=== PATIENT | male | born 1955 | race Caucasian/White ===

== ENCOUNTER 2021-01-20 20:22 | Inpatient (IN) | payer MEDICARE, OTHER ==
[2021-01-20 21:22] LABS: Basophils % (A) 0 %; Eosinophils % (A) 0 %; HGB 17.7 gm/dL (13.0-17.5); Hypochromasia Slight; Lymphocytes # (A) 0.4 k/uL (1.0-4.8); Lymphocytes % (A) 6 %; MCH 28.3 pg (25.0-35.0); MCHC 31.7 g/dL (31.0-37.0); MCV 89.2 fL (80.0-100.0); Mean Platelet Volume 9.5; Monocytes # (A) 0.2 k/uL (0-1.0); Monocytes % (A) 2 %; Neutrophils # (A) 6.7 k/uL (1.3-7.7); Neutrophils % (A) 91 %; Platelet Count 147 k/uL (150-450); RBC 6.27 m/uL (4.30-5.90); RDW 15.3 % (11.5-15.5); WBC 7.4 k/uL (3.8-10.6)
--- NOTE | 2021-01-20 21:27 | ED ---
SOB HPI - General Chief Complaint: Shortness of Breath Stated Complaint: Shortness of Breath Time Seen by Provider: 01/20/21 20:34 Source: EMS Mode of arrival: EMS Limitations: no limitations - History of Present Illness Initial Comments: Mark is a 65-year-old woman who does not follow up with primary care physician, Mark presented to an outside hospital with a complaint of chronic abdominal pain, lower extremity edema, shortness of breath. Patient was found to have hypoxia with oxygen levels in the low 80s. Chest x-ray showed reticular pattern of abnormality. Abdominal computed tomography scan showed diffuse lymphadenopathy with no acute findings. Patient actually requirements at 15 L/m to maintain oxygen saturation of 90-92% he was transferred here for evaluation by pulmonology and cardiology. Patient doesn't follow the primary care physician doesn't have any formal diagnoses. Doesn't have any chest pain but reports he's been feeling very short of breath his legs swollen his been fatigued. Denies any fevers chills nausea or vomiting. - Related Data Home Medications Medication Instructions Recorded Confirmed No Known Home Medications 01/20/21 01/20/21 Allergies Allergy/AdvReac Type Severity Reaction Status Date / Time No Known Allergies Allergy Verified 01/20/21 21:41 Review of Systems ROS Statement: Those systems with pertinent positive or pertinent negative responses have been documented in the HPI. ROS Other: All systems not noted in ROS Statement are negative. Past Medical History Past Medical History: Hypertension History of Any Multi-Drug Resistant Organisms: None Reported Past Surgical History: No Surgical Hx Reported Past Psychological History: No Psychological Hx Reported Smoking Status: Former smoker Past Alcohol Use History: None Reported Past Drug Use History: None Reported General Exam - General Exam Comments Initial Comments: Physical Exam GENERAL: Moderate respiratory distress Obese with BMI 43.9 HENT: Normocephalic, Atraumatic. EYES: PERRL, EOMI PULMONARY: No wheezing Tachypnea CARDIOVASCULAR: RRR ABDOMEN: Obese, non-tender SKIN: Pale, dry : Deferred NEUROLOGIC: Patient is alert and oriented x3. Moving all extremities spontaneously MUSCULOSKELETAL: Normal strength Lower extremity edema PSYCHIATRIC: Normal psychiatric evaluation. Limitations: no limitations Course Vital Signs 01/20/21 01/20/21 20:33 22:02 Temperature 98.5 F Pulse Rate 94 101 H Respiratory 18 24 Rate Blood Pressure 185/115 154/109 O2 Sat by Pulse 90 L 90 L Oximetry Medical Decision Making - Medical Decision Making Patient care was discussed with transferring physician Obese 65-year-old gentleman who does not follow with a physician presented hypoxic with multitude of complaints Outside labs are relatively unremarkable chest x-ray had some abnormalities and abdominal CT showed diffuse lymphadenopathy Upon arrival patient was on nonrebreather at 15 L with oxygen saturations in the mid 90s Patient was placed on BiPAP Repeat labs are obtained patient's troponin continues to not be elevated Computed tomography scan shows possible filtrate in both lower lungs, community- acquired pneumonia coverage was ordered Patient care was admitted to Dr. Matthews - Lab Data Result diagrams: 01/20/21 21:05 01/20/21 21:05 Lab Results 01/20/21 01/20/21 01/20/21 Range/Units 21: 21:05 21:05 WBC 7.4 (3.8-10.6) k/uL RBC 6.27 H (4.30-5.90) m/uL Hgb 17.7 H (13.0-17.5) gm/dL Hct 56.0 H (39.0-53.0) % MCV 89.2 (80.0-100.0) fL MCH 28.3 (25.0-35.0) pg MCHC 31.7 (31.0-37.0) g/dL RDW 15.3 (11.5-15.5) % Plt Count 147 L (150-450) k/uL MPV 9.5 Neutrophils % 91 % Lymphocytes % 6 % Monocytes % 2 % Eosinophils % 0 % Basophils % 0 % Neutrophils # 6.7 (1.3-7.7) k/uL Lymphocytes # 0.4 L (1.0-4.8) k/uL Monocytes # 0.2 (0-1.0) k/uL Eosinophils # 0.0 (0-0.7) k/uL Basophils # 0.0 (0-0.2) k/uL Hypochromasia Slight PT 11.6 (9.0-12.0) sec INR 1.1 (<1.2) APTT 24.1 (22.0-30.0) sec Sodium 138 (137-145) mmol/L Potassium 4.1 (3.5-5.1) mmol/L Chloride 98 (98-107) mmol/L Carbon Dioxide 32 H (22-30) mmol/L Anion Gap 8 mmol/L BUN 16 (9-20) mg/dL Creatinine 0.82 (0.66-1.25) mg/dL Est GFR (CKD-EPI)AfAm >90 (>60 ml/min/1.73 sqM) Est GFR (CKD-EPI)NonAf >90 (>60 ml/min/1.73 sqM) Glucose 162 H (74-99) mg/dL Plasma Lactic Acid Federico (0.7-2.0) mmol/L Calcium 8.9 (8.4-10.2) mg/dL Total Bilirubin 1.0 (0.2-1.3) mg/dL AST 29 (17-59) U/L ALT 29 (4-49) U/L Alkaline Phosphatase 98 (38-126) U/L Total Protein 7.0 (6.3-8.2) g/dL Albumin 4.1 (3.5-5.0) g/dL 01/20/21 Range/Units 21:05 WBC (3.8-10.6) k/uL RBC (4.30-5.90) m/uL Hgb (13.0-17.5) gm/dL Hct (39.0-53.0) % MCV (80.0-100.0) fL MCH (25.0-35.0) pg MCHC (31.0-37.0) g/dL RDW (11.5-15.5) % Plt Count (150-450) k/uL MPV Neutrophils % % Lymphocytes % % Monocytes % % Eosinophils % % Basophils % % Neutrophils # (1.3-7.7) k/uL Lymphocytes # (1.0-4.8) k/uL Monocytes # (0-1.0) k/uL Eosinophils # (0-0.7) k/uL Basophils # (0-0.2) k/uL Hypochromasia PT (9.0-12.0) sec INR (<1.2) APTT (22.0-30.0) sec Sodium (137-145) mmol/L Potassium (3.5-5.1) mmol/L Chloride (98-107) mmol/L Carbon Dioxide (22-30) mmol/L Anion Gap mmol/L BUN (9-20) mg/dL Creatinine (0.66-1.25) mg/dL Est GFR (CKD-EPI)AfAm (>60 ml/min/1.73 sqM) Est GFR (CKD-EPI)NonAf (>60 ml/min/1.73 sqM) Glucose (74-99) mg/dL Plasma Lactic Acid Federico 1.0 (0.7-2.0) mmol/L Calcium (8.4-10.2) mg/dL Total Bilirubin (0.2-1.3) mg/dL AST (17-59) U/L ALT (4-49) U/L Alkaline Phosphatase (38-126) U/L Total Protein (6.3-8.2) g/dL Albumin (3.5-5.0) g/dL - EKG Data -: EKG Interpreted by Me EKG Comments: EKG was obtained due to shortness of breath, EKG obtained at 2053 rate is 91 rhythm is sinus, 160, care is 82, QTC prolonged at 526. No acute ST elevations or depressions no evidence of acute ischemia or infarction. Respiratory ar tifact noted. Disposition Clinical Impression: Hypoxia Disposition: ADMITTED IP TO THIS HOSP Condition: Serious Referrals: None,Stated [Primary Care Provider] - 1-2 days
[2021-01-20 21:32] LABS: INR 1.1 (<1.2); Partial Thromboplastin Time 24.1 sec (22.0-30.0); Prothrombin Time 11.6 sec (9.0-12.0)
[2021-01-20 22:14] LABS: ALT 29 U/L (4-49); AST 29 U/L (17-59); African American GFR (CKD) >90 (>60 ml/min/1.73 sqM); Albumin 4.1 g/dL (3.5-5.0); Alkaline Phosphatase 98 U/L (38-126); Anion Gap 8 mmol/L; Blood Urea Nitrogen 16 mg/dL (9-20); Calcium 8.9 mg/dL (8.4-10.2); Carbon Dioxide 32 mmol/L (22-30); Chloride 98 mmol/L (98-107); Glucose 162 mg/dL (74-99); Non-African American GFR(CKD) >90 (>60 ml/min/1.73 sqM); Potassium 4.1 mmol/L (3.5-5.1); Sodium 138 mmol/L (137-145)
--- NOTE | 2021-01-20 22:38 | CT ---
EXAMINATION TYPE: CT chest angio for PE DATE OF EXAM: 01/20/2021 COMPARISON: None HISTORY: SOB CT DLP: 745.2 mGycm Automated exposure control for dose reduction was used. CONTRAST: Performed with IV Contrast, patient injected with 82cc mL of Isovue 370. There are 3-D post processed images. There is patchy interstitial infiltrates and atelectasis in the posterior lower lung vasques. Heart is enlarged. There is no pericardial effusion. There is no pleural effusion. There are no hilar masses. There is no mediastinal adenopathy. Thoracic aorta is intact. There is no aneurysm or dissection. There is T8 anterior wedging 20% which appears old. There is no evidence of filling defect in the pulmonary arteries. Ascending aorta measures 3.9 cm. IMPRESSION: No evidence of pulmonary embolism. Bilateral posterior lower lung field pulmonary infiltrates and atelectasis. Cardiomegaly.
[2021-01-20] MEDS ORDERED: NALOXONE 0.4 MG/ML 1 ML VIAL IV PRN (22:43)
[2021-01-20] MEDS ORDERED: AZITHROMYCIN 500 MG in SODIUM CHLORIDE 0.9% 250 ML IVPB STA (22:43)
[2021-01-20 23:56] LABS: ABG Base Excess 10.3 mmol/L; ABG HCO3 36 mmol/L (21-25); ABG Oxygen Saturation 94.3 % (94-97); ABG PCO2 61 mmHg (35-45); ABG PH 7.37 (7.35-7.45); ABG PO2 76 mmHg (83-108); ABG TCO2 38 mmol/L (19-24); Allen Test Performed? Yes
[2021-01-21] MEDS ORDERED: IPRATROPIUM-ALBUTEROL 3 ML NEB INHALATION PRN (02:53)
--- NOTE | 2021-01-21 02:58 | P.HPIM ---
History of Present Illness H&P Date: 01/21/21 The patient is a 65-year-old male with a PMH of COPD and hypertension, who has not seen a physician in many years was transferred to [facility] from [facility] where he presented earlier today with multiple complaints including shortness of breath, abdominal pain, and leg swelling. The patient reports that he has been suffering with poor exertional dyspnea for many years. He was initially diagnosed with COPD and was prescribed inhalers, however the patient stopped going to physicians and thereby has not been using inhalers. He also reports diffuse abdominal and chest pain brought on with any heavy lifting. He denies pain on exertion and notes that it is only when he is holding something heavy in his arms or bending down to pick something up. He notes that over the past 1 week, shortness of breath had been gradually worsening and his excess tolerance was severely diminished, at which time his sisters convinced him to come to the emergency room. At time of interview, he reports feeling better. Reports feeling no shortness of breath at the time of interview. Denied chest discomfort, fever, chills. Reports mild chronic morning cough, unchanged. Reports long-standing bilateral lower extremity swelling, also unchanged. Denied nausea, vomiting, diarrhea. Also denied visual disturbances, weakness, numbness, tingling, dizziness. Patient reports that he was diagnosed with an abdominal mass 7-8 years ago during an emergency room visit, but the patient never followed up for it. The patient had undergone an extensive evaluation at [facility] which was all reviewed. Laboratory evaluation had revealed a WBC count of 7.5, hemoglobin 16.3, platelets 159, sodium 139, potassium 4.2, chloride 102, CO2 32, BUN 16, creatinine 0.7, glucose 153, calcium 8.6, AST 24, ALT 25, total bilirubin 1.0, lipase 106, troponin I less than 0.05, and BNP 383. CT abdomen and pelvis revealed moderate distention of the urinary bladder with bilateral hydronephrosis and hydroureter suggesting a bladder outlet obstruction. Also revealed multiple mildly enlarged periaortic lymph nodes measuring up to 1.5 cm that were indeterminate. 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 An EKG had revealed sinus rhythm at 91 bpm with a prolonged QTC at 512 and T-wave inversions in leads V1 and V2. Patient also had a CT chest angiogram at [facility] emergency room which revealed no evidence of pulmonary embolism with bilateral posterior lower lung vasques pulmonary infiltrates along with cardiomegaly. Coronavirus PCR was negative. ABG was also reviewed and was notable for a pCO2 of 61. Review of systems: Pertinent positives and negatives as discussed in HPI, a complete review of systems was performed and all other systems are negative. Physical examination: General: Somewhat ill-appearing, no distress, appears older than stated age, morbidly obese Derm: no unusual rashes/lesions no unusual ecchymoses, warm, dry Head: atraumatic, normocephalic, symmetric Eyes: EOMI, no lid lag, anicteric sclera, pupils equal round reactive to light ENT: Nose and ears atraumatic, no thrush, no pharyngeal erythema Neck: No thyromegaly, no cervical lymphadenopathy, trachea midline, supple Mouth: no lip lesion, mucus membranes moist Cardiovascular: S1S2 reg, no murmur, positive posterior tibial pulse bilateral, 2+ bilateral lower extremity pitting edema with chronic venous stasis changes noted, capillary refill less than 2 seconds Lungs: Poor air entry bilaterally with somewhat diminished breath sounds and bibasilar rales, no rhonchi, no rales , no accessory muscle use Abdominal: soft, nontender to palpation, no guarding, no appreciable organomegaly, normal bowel sounds Ext: no gross muscle atrophy, muscle strength 5 out of 5 in all 4 extremities grossly, no contractures, Neuro: CN II-XI grossly intact, light touch intact all 4 extremities, finger to nose within normal limits, Psych: Alert, oriented, appropriate affect Assessment/plan Shortness of breath, suspected acute COPD exacerbation with hypoxic and hypercapnic respiratory failure -Continue with DuoNeb's -IV steroids -Pulmonary consult -Supplemental oxygen -Obtain echocardiogram -Obtain procalcitonin - c/w Azithromycin and Ceftriaxone for now Hydroureteronephrosis -Urology consult -Bladder scan Preaortic enlarged LNs -No obvious mass noted on CT chest or abdomen/pelvis -Outpatient Oncology evaluation following dischargea HTN -Start HCTZ Prolonged QT -Hold off on further QT prolonging agents Hyperglycemia -Check A1c -Insulin sliding scale and blood glucose monitoring DVT prophylaxis -Heparin subq The patient is admitted with an anticipated greater than 2 midnight stay for evaluation of SOB CODE STATUS: Full Code Discussed with: Patient Anticipated discharge date: 3-[address]: Home A total of 40 minutes was spent on the care of this complex patient more than 50% of the time was spent in counseling and care coordination. Past Medical History Past Medical History: Hypertension History of Any Multi-Drug Resistant Organisms: None Reported Past Surgical History: No Surgical Hx Reported Past Psychological History: No Psychological Hx Reported Smoking Status: Former smoker Past Alcohol Use History: None Reported Past Drug Use History: None Reported Medications and Allergies Home Medications Medication Instructions Recorded Confirmed Type No Known Home Medications 01/20/21 01/20/21 History Allergies Allergy/AdvReac Type Severity Reaction Status Date / Time No Known Allergies Allergy Verified 01/20/21 21:41 Physical Exam Vitals: Vital Signs Temp Pulse Resp BP Pulse Ox 01/20/21 23:32 98 24 152/103 91 L 01/20/21 22:02 101 H 24 154/109 90 L 01/20/21 20:33 98.5 F 94 18 185/115 90 L Intake and Output 01/20/21 01/20/21 01/21/21 14:59 22:59 06:59 Other: Weight 127.006 kg Results CBC & Chem 7: 01/20/21 21:05 01/20/21 21:05 Labs: Abnormal Lab Results - Last 24 Hours (Table) 01/20/21 01/20/21 01/20/21 Range/Units 21:05 21:05 23:47 RBC 6.27 H (4.30-5.90) m/uL Hgb 17.7 H (13.0-17.5) gm/dL Hct 56.0 H (39.0-53.0) % Plt Count 147 L (150-450) k/uL Lymphocytes # 0.4 L (1.0-4.8) k/uL ABG pCO2 61 H (35-45) mmHg ABG pO2 76 L (83-108) mmHg ABG HCO3 36 H (21-25) mmol/L ABG Total CO2 38 H (19-24) mmol/L Carbon Dioxide 32 H (22-30) mmol/L Glucose 162 H (74-99) mg/dL
[2021-01-21] MEDS ORDERED: methylPREDNISolone SOD SUCCI 125 MG/2 ML VIAL IV SCH (06:00)
[2021-01-21 07:57] LABS: Glucose,Whole Blood 114 mg/dL (75-99)
[2021-01-21] MEDS: INSULIN ASPART (NovoLOG) 100 UNIT/ML VIAL SQ SCH ×4 (08:50→21:16)
[2021-01-21] MEDS: IPRATROPIUM-ALBUTEROL 3 ML NEB INHALATION SCH ×4 (08:58→20:51)
[2021-01-21] MEDS: HEPARIN SODIUM,PORCINE/PF 5,000 UNIT/0.5 ML SYRINGE SQ SCH ×3 (09:07→23:33)
[2021-01-21 11:16] LABS: Glucose,Whole Blood 147 mg/dL (75-99)
--- NOTE | 2021-01-21 11:42 | ECHOF ---
Referral Reason:SOB MEASUREMENTS -------- HEIGHT: 170.2 cm WEIGHT: 127.0 kg BP: 158/91 RVIDd: 3.7 cm (< 3.3) IVSd: 1.4 cm (0.6 - 1.1) LVIDd: 5.5 cm (3.9 - 5.3) LVPWd: 1.6 cm (0.6 - 1.1) IVSs: 2.2 cm LVIDs: 3.9 cm LVPWs: 2.2 cm LA Diam: 3.8 cm (2.7 - 3.8) LAESV Index (A-L): 36.25 ml/m Ao Diam: 4.0 cm (2.0 - 3.7) AV Cusp: 1.9 cm (1.5 - 2.6) MV EXCURSION: 21.757 mm (> 18.000) MV EF SLOPE: 49 mm/s (70 - 150) EPSS: 1.1 cm MV E Jv: 0.78 m/s MV DecT: 272 ms MV A Jv: 1.01 m/s MV E/A Ratio: 0.77 AV maxP.90 mmHg AV meanP.02 mmHg AR PHT: 867 ms RAP: 15.00 mmHg RVSP: 48.30 mmHg FINDINGS -------- Sinus rhythm. This was a technically adequate study. The left ventricular size is normal. There is moderate concentric left ventricular hypertrophy. O verall left ventricular systolic function is moderately impaired with, an EF between 35 - 40 %. The right ventricle is mild to moderately enlarged. LA is moderately dilated 34-39 ml/m2 The right atrium is normal in size. Interatrial and interventricular septum intact. There is mild aortic valve sclerosis. There is mild aortic regurgitation. There is mild aortic st enosis present. Peak/mean gradient across the Aortic Valve is 19.90mmHg / 9.02mmHg. The mitral valve leaflets are mildly thickened. Mild mitral regurgitation is present. Mild tricuspid regurgitation present. There is moderate pulmonary hypertension. The right ventric ular systolic pressure, as measured by Doppler, is 48.30mmHg. The pulmonic valve was not well visualized. The aortic root is dilated measuring 4.0cm. The inferior vena cava is dilated with poor inspiratory collapse which is consistent with estimated r ight atrial pressure of 15 mmHg. There is no pericardial effusion. CONCLUSIONS -------- 1. The left ventricular size is normal. 2. There is moderate concentric left ventricular hypertrophy. 3. Overall left ventricular systolic function is moderately impaired with, an EF between 35 - 40 %. 4. The right ventricle is mild to moderately enlarged. 5. LA is moderately dilated 34-39 ml/m2 6. There is mild aortic valve sclerosis. 7. There is mild aortic regurgitation. 8. There is mild aortic stenosis present. 9. Peak/mean gradient across the Aortic Valve is 19.90mmHg / 9.02mmHg. 10. The mitral valve leaflets are mildly thickened. 11. Mild mitral regurgitation is present. 12. Mild tricuspid regurgitation present. 13. There is moderate pulmonary hypertension. 14. The right ventricular systolic pressure, as measured by Doppler, is 48.30mmHg. 15. The aortic root is dilated measuring 4.0cm. 16. The inferior vena cava is dilated with poor inspiratory collapse which is consistent with estimat ed right atrial pressure of 15 mmHg. 17. There is no pericardial effusion. PRESS OFFBEARER: Kerline Noel RDCS
--- NOTE | 2021-01-21 11:59 | P.CNPUL ---
History of Present Illness Consult date: 01/21/21 Requesting physician: Caesar Matthews Reason for consult: dyspnea, hypoxemia Chief complaint: Shortness of breath. History of present illness: Pulmonary consult dated 01/21/2021. 65-year-old obese male, who apparently does not see a family doctor has not seen a doctor in years, presents with the emergency room with complaints of shortness of breath, lower extremity edema, and increasing abdominal girth. The patient was noted to have significant clubbing of the fingers and toes. The patient do esn't smoke. He apparently has been smoking for a number of years although he quit for a period time as well. The patient complains of increasing shortness of breath, increasing abdominal girth, and lower extremities edema. His CAT scan did not reveal a pulmonary embolism. His examination was consistent with interstitial lung disease/pulmonary fibrosis. I suspect that likely to be his primary diagnosis. In addition, the patient likely also has secondary pulmonary hypertension, and cor pulmonale. He is currently on 15 L high flow oxygen. He appears to be mildly tachypnea. He keeps on dozing off to sleep. His saturations are in the low 90s. Temperature 97.6, heart rate 86, respiratory rate 22, and blood pressure 189/103. Currently admitted includes a white count 7.4, hemoglobin 17.7, hematocrit 56, and platelet count 147,000. PT, INR, and PTT are normal. Blood gases show a well compensated hypercapnea, with a PaO2 of 76. Sodium 138, potassium 4.1, chlorides 98, CO2 32, anion gap 8, BUN 16, and creatinine 0.82. Coronavirus testing is negative. Review of Systems REVIEW OF SYSTEMS: CONSTITUTIONAL: Lethargy and somnolence. NEUROLOGIC: [ Negative.] HEENT: [ Negative.] CARDIAC: Lower extremity edema. PULMONARY: Shortness of breath. GI: Increasing abdominal girth. : [Negative.] RHEUMATOLOGIC: [ Negative.] IMMUNOLOGIC: [ Negative.] ENDOCRINE: [Negative. ] DERMATOLOGIC: [Negative.] Past Medical History Past Medical History: Hypertension History of Any Multi-Drug Resistant Organisms: None Reported Past Surgical History: No Surgical Hx Reported Additional Past Surgical History / Comment(s): surgery 25 yrs ago right flank surgery, pt does not know what kind it was. Past Anesthesia/Blood Transfusion Reactions: No Reported Reaction Past Psychological History: No Psychological Hx Reported Smoking Status: Former smoker Past Alcohol Use History: None Reported Past Drug Use History: None Reported Medications and Allergies Home Medications Medication Instructions Recorded Confirmed Type No Known Home Medications 01/20/21 01/20/21 History Allergies Allergy/AdvReac Type Severity Reaction Status Date / Time No Known Allergies Allergy Verified 01/20/21 21:41 Physical Exam Osteopathic Statement: *. No significant issues noted on an osteopathic structural exam other than those noted in the History and Physical/Consult. Vitals: Vital Signs Temp Pulse Pulse Resp BP BP Pulse Ox 01/21/21 08:00 97.6 F 86 22 189/103 92 L 01/21/21 01:00 98.2 F 87 21 158/91 91 L 01/21/21 00:15 91 L 01/20/21 23:32 98 24 152/103 91 L 01/20/21 22:02 101 H 24 154/109 90 L 01/20/21 20:33 98.5 F 94 18 185/115 90 L Intake and Output 01/20/21 01/21/21 01/21/21 22:59 06:59 14:59 Intake Total 200 Balance 200 Intake: Oral 200 Other: # Voids 2 Weight 127.006 kg 127.006 kg No acute distress, somnolent and lethargic, he does arouse, with mild respiratory distress, and tachypnea. HEENT examination is grossly unremarkable. Neck supple. Full range of motion. No adenopathy thyromegaly or neck vein dist ention. Cardiovascular examination reveals regular rhythm rate. S1-S2 normal. No S3 or S4. No discernible murmur noted. Heart rate 86 bpm. Heart sounds are distant. Lungs reveal bibasilar crackles. Breath sounds are equal bilaterally. No rhonchi or wheezes. He is mildly restricted in his breathing. Abdomen soft bowel sounds are heard. No masses or tenderness. Abdomen is obese. Extremities are intact. No cyanosis. Lower extremity edema is 2+. The patient is significantly clubbed both in the fingertips and toe tips. Skin is without rash or lesion. Neurologic examination is brief but nonfocal. The patient dozes off to sleep easily. Results - Laboratory Findings CBC and BMP: 01/20/21 21:05 01/20/21 21:05 ABG ABG pH 7.37 (7.35-7.45) 01/20/21 23:47 ABG pCO2 61 mmHg (35-45) H 01/20/21 23:47 ABG pO2 76 mmHg (83-108) L 01/20/21 23:47 ABG O2 Saturation 94.3 % (94-97) 01/20/21 23:47 PT/INR, D-dimer PT 11.6 sec (9.0-12.0) 01/20/21 21:05 INR 1.1 (<1.2) 01/20/21 21:05 Abnormal lab findings: Abnormal Labs 01/20/21 01/20/21 01/20/21 21:05 21:05 23:47 RBC 6.27 H Hgb 17.7 H Hct 56.0 H Plt Count 147 L Lymphocytes # 0.4 L ABG pCO2 61 H ABG pO2 76 L ABG HCO3 36 H ABG Total CO2 38 H Carbon Dioxide 32 H Glucose 162 H POC Glucose (mg/dL) Ammonia 01/21/21 01/21/21 01/21/21 07:54 10:38 11:14 RBC Hgb Hct Plt Count Lymphocytes # ABG pCO2 ABG pO2 ABG HCO3 ABG Total CO2 Carbon Dioxide Glucose POC Glucose (mg/dL) 114 H 147 H Ammonia 31 H - Diagnostic Findings Chest x-ray: image reviewed CT scan - chest: image reviewed Assessment and Plan Assessment: Acute and chronic hypoxemic and hypercapnic respiratory failure, in a patient who I suspect has long-standing interstitial lung disease/pulmonary fibrosis, as well as COPD from previous tobacco use. Probable secondary pulmonary hypertension and cor pulmonale. Morbid obesity. Rule out sleep apnea syndrome. Rule out Pickwickian syndrome. Polycythemia, likely secondary to chronic lung disease. No evidence of pulmonary embolism on CT angiogram. Prior history of tobacco use. Medical noncompliance. Plan: Plan dated 01/21/2021. The patient will need an echocardiogram. The patient should get a high- resolution computed tomography scan to rule out interstitial lung disease/pulmonary fibrosis. This can be done as an outpatient. He'll need outpatient follow-up including a 6 minute walk distance, and a complete PFT. Currently, he would benefit from breathing treatments and diuretics. Cardiology should see the patient as well. Additional recommendations and suggestions are forthcoming. The patient does not need antibiotics at this time. Time with Patient: Greater than 30
--- NOTE | 2021-01-21 15:33 | P.PN ---
Subjective Progress Note Date: 01/21/21 (delayed charting seen at 1050) Principal diagnosis: shortness of breath Patient is a 65-year-old male transferred here from [facility] due to severe hypoxemia. He has a history of COPD and hypertension but had not physician in many years. At [facility] he underwent an extensive evaluation. His labs were unremarkable however CT abdomen and pelvis showed distended urinary bladder with bilateral hydronephrosis as well as possible right lower lobe pulmonary nodule. Patient is referred here for further evaluation. He underwent a CTA of the chest which was negative for pulmonary embolism and showed some atelectasis area did urology and pulmonology were consulted. Patient seen and examined at bedside. He reports that he has had progressive shortness of breath the last several years. He states he has had clubbing as long as he can remember. He has a history of 80 pack years smoking. He has chronic purple discoloration of bilateral lower extremities. General: non toxic, no distress, appears at stated age Derm: warm, dry Head: atraumatic, normocephalic, symmetric Eyes: EOMI, no lid lag, anicteric sclera Mouth: no lip lesion, mucus membranes moist Cardiovascular: S1S2 reg, no murmur, positive posterior tibial pulse bilateral, Lungs: Wheezing bilateral, no rhonchi, no rales , no accessory muscle use Abdominal: soft, nontender to palpation, no guarding, no appreciable organomegaly Ext: no gross muscle atrophy, trace edema bilateral lower extremities, no contractures clubbing of bilateral hands, Neuro: CN II-XI grossly intact, no focal neuro deficits, asterixis, hypophonia with mast cc Psych: Alert, oriented, appropriate affect Acute exacerbation of COPD with acute on chronic hypoxic hypercapnic respiratory failure - bronchodilators -Pulmonary recommendations: Outpatient PFT, walk test, and HRCT, no steroids or abx -Wean O2 as able - off abx per pulm, await procalcitonin Newly discovered systolic cardiomyopathy with 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-40%, acute exacerbation -Lasix, spironolactone - cozaar - no BB due to new excerbation and systolic -Cardiology consult -Telemetry -Strict I's and O's, daily weight Hydronephrosis with bladder outlet obstruction -Await urology recommendations - [place] Enlarged periaortic lymph nodes -Outpatient oncology evaluation -No obvious mass on CT abdomen and pelvis Elevated blood pressure without formal diagnosis of hypertension - lasix, spironolactone - follow BP Prolonged QT Hyperglycemia - SSI - await A1C Obesity with BMI 43.9 - outpatient structured weight loss DVT prophylaxis: SCDs Discussed with: patient, nursing Anticipated discharge: 2-[address]: home A total of 45 minutes was spent on the care of this complex patient more than 50% of the time was spent in counseling and care coordination. Objective - Vital Signs Vital signs: Vital Signs Temp 98.7 F 01/21/21 14:00 Pulse 74 01/21/21 14:00 Resp 22 01/21/21 14:00 BP 151/91 01/21/21 14:00 Pulse Ox 95 01/21/21 14:00 Intake & Output 01/20/21 01/21/21 01/21/21 18:59 06:59 18:59 Intake Total 200 Balance 200 Weight 127.006 kg Intake: Oral 200 Other: # Voids 2 - Labs CBC & Chem 7: 01/20/21 21:05 01/20/21 21:05 Labs: Abnormal Lab Results - Last 24 Hours (Table) 01/20/21 01/20/21 01/20/21 Range/Units 21:05 21:05 23:47 RBC 6.27 H (4.30-5.90) m/uL Hgb 17.7 H (13.0-17.5) gm/dL Hct 56.0 H (39.0-53.0) % Plt Count 147 L (150-450) k/uL Lymphocytes # 0.4 L (1.0-4.8) k/uL ABG pCO2 61 H (35-45) mmHg ABG pO2 76 L (83-108) mmHg ABG HCO3 36 H (21-25) mmol/L ABG Total CO2 38 H (19-24) mmol/L Carbon Dioxide 32 H (22-30) mmol/L Glucose 162 H (74-99) mg/dL POC Glucose (mg/dL) (75-99) mg/dL Ammonia (<30) umol/L 01/21/21 01/21/21 01/21/21 Range/Units 07:54 10:38 11:14 RBC (4.30-5.90) m/uL Hgb (13.0-17.5) gm/dL Hct (39.0-53.0) % Plt Count (150-450) k/uL Lymphocytes # (1.0-4.8) k/uL ABG pCO2 (35-45) mmHg ABG pO2 (83-108) mmHg ABG HCO3 (21-25) mmol/L ABG Total CO2 (19-24) mmol/L Carbon Dioxide (22-30) mmol/L Glucose (74-99) mg/dL POC Glucose (mg/dL) 114 H 147 H (75-99) mg/dL Ammonia 31 H (<30) umol/L
[2021-01-21 16:44] LABS: Glucose,Whole Blood 121 mg/dL (75-99)
--- NOTE | 2021-01-21 20:10 | P.GSCN ---
History of Present Illness Consult date: 01/21/21 Reason for Consult: Hydronephrosis, urinary retention Requesting physician: Caesar Matthews History of present illness: The patient is a 65-year-old white male admitted with dyspnea. A CT scan of the abdomen and pelvis showed moderate bladder distention, bilateral hydroureteronephrosis, moderate prostate enlargement, 3.7 cm AAA, and multiple periaortic nodes measuring up to 1.7 cm in size.. He was transferred to [facility] for admission from [facility]. The patient has an unremarkable urologic history. He reports nocturia 2-3. Similarly, he voids 2-3 times throughout the day. He denies dysuria and hematuria. He also denies urinary incontinence. He states that his voiding has been stable for many years. Pertinent laboratory values include BUN/creatinine levels of 16 and 0.7, respectively. It was stated in the transfer records that the patient was given Lasix prior to the CT scan, and that he voided well following the CT scan. Review of Systems - Constitutional Denies chills, Denies fever - Respiratory Reports dyspnea - Gastrointestinal Denies nausea, Denies vomiting - Genitourinary Reports as per HPI Past Medical History Past Medical History: Hypertension History of Any Multi-Drug Resistant Organisms: None Reported Past Surgical History: No Surgical Hx Reported Additional Past Surgical History / Comment(s): surgery 25 yrs ago right flank surgery, pt does not know what kind it was. Past Anesthesia/Blood Transfusion Reactions: No Reported Reaction Past Psychological History: No Psychological Hx Reported Smoking Status: Former smoker Past Alcohol Use History: None Reported Past Drug Use History: None Reported Medications and Allergies Home Medications Medication Instructions Recorded Confirmed Type No Known Home Medications 01/20/21 01/20/21 History Allergies Allergy/AdvReac Type Severity Reaction Status Date / Time No Known Allergies Allergy Verified 01/20/21 21:41 Surgical - Exam Vital Signs Temp Pulse Resp BP Pulse Ox 98.5 F 94 18 185/115 90 L 01/20/21 20:33 01/20/21 20:33 01/20/21 20:33 01/20/21 20:33 01/20/21 20:33 - General well developed, well nourished, no distress - Abdomen Abdomen: soft, non tender, no guarding, no rigid, no rebound - Genitourinary normal penis with no external lesions, testicles non-tender - Rectum Rectum: normal sphincter tone, no masses, other (Prostate 30 g, smooth) - Psychiatric oriented to time, oriented to person, oriented to place, speech is normal, memory intact Results - Labs 01/20/21 21:05 01/20/21 21:05 Abnormal Lab Results - Last 24 Hours (Table) 01/20/21 01/20/21 01/20/21 Range/Units 21:05 21:05 23:47 RBC 6.27 H (4.30-5.90) m/uL Hgb 17.7 H (13.0-17.5) gm/dL Hct 56.0 H (39.0-53.0) % Plt Count 147 L (150-450) k/uL Lymphocytes # 0.4 L (1.0-4.8) k/uL ABG pCO2 61 H (35-45) mmHg ABG pO2 76 L (83-108) mmHg ABG HCO3 36 H (21-25) mmol/L ABG Total CO2 38 H (19-24) mmol/L Carbon Dioxide 32 H (22-30) mmol/L Glucose 162 H (74-99) mg/dL POC Glucose (mg/dL) (75-99) mg/dL Ammonia (<30) umol/L 01/21/21 01/21/21 01/21/21 Range/Units 07:54 10:38 11:14 RBC (4.30-5.90) m/uL Hgb (13.0-17.5) gm/dL Hct (39.0-53.0) % Plt Count (150-450) k/uL Lymphocytes # (1.0-4.8) k/uL ABG pCO2 (35-45) mmHg ABG pO2 (83-108) mmHg ABG HCO3 (21-25) mmol/L ABG Total CO2 (19-24) mmol/L Carbon Dioxide (22-30) mmol/L Glucose (74-99) mg/dL POC Glucose (mg/dL) 114 H 147 H (75-99) mg/dL Ammonia 31 H (<30) umol/L 01/21/21 Range/Units 16:36 RBC (4.30-5.90) m/uL Hgb (13.0-17.5) gm/dL Hct (39.0-53.0) % Plt Count (150-450) k/uL Lymphocytes # (1.0-4.8) k/uL ABG pCO2 (35-45) mmHg ABG pO2 (83-108) mmHg ABG HCO3 (21-25) mmol/L ABG Total CO2 (19-24) mmol/L Carbon Dioxide (22-30) mmol/L Glucose (74-99) mg/dL POC Glucose (mg/dL) 121 H (75-99) mg/dL Ammonia (<30) umol/L Diabetes panel 01/20/21 Range/Units 21:05 Sodium 138 (137-145) mmol/L Potassium 4.1 (3.5-5.1) mmol/L Chloride 98 (98-107) mmol/L Carbon Dioxide 32 H (22-30) mmol/L BUN 16 (9-20) mg/dL Creatinine 0.82 (0.66-1.25) mg/dL Glucose 162 H (74-99) mg/dL Calcium 8.9 (8.4-10.2) mg/dL AST 29 (17-59) U/L ALT 29 (4-49) U/L Alkaline Phosphatase 98 (38-126) U/L Total Protein 7.0 (6.3-8.2) g/dL Albumin 4.1 (3.5-5.0) g/dL Calcium panel 01/20/21 Range/Units 21:05 Calcium 8.9 (8.4-10.2) mg/dL Albumin 4.1 (3.5-5.0) g/dL Pituitary panel 01/20/21 Range/Units 21:05 Sodium 138 (137-145) mmol/L Potassium 4.1 (3.5-5.1) mmol/L Chloride 98 (98-107) mmol/L Carbon Dioxide 32 H (22-30) mmol/L BUN 16 (9-20) mg/dL Creatinine 0.82 (0.66-1.25) mg/dL Glucose 162 H (74-99) mg/dL Calcium 8.9 (8.4-10.2) mg/dL Adrenal panel 01/20/21 Range/Units 21:05 Sodium 138 (137-145) mmol/L Potassium 4.1 (3.5-5.1) mmol/L Chloride 98 (98-107) mmol/L Carbon Dioxide 32 H (22-30) mmol/L BUN 16 (9-20) mg/dL Creatinine 0.82 (0.66-1.25) mg/dL Glucose 162 H (74-99) mg/dL Calcium 8.9 (8.4-10.2) mg/dL Total Bilirubin 1.0 (0.2-1.3) mg/dL AST 29 (17-59) U/L ALT 29 (4-49) U/L Alkaline Phosphatase 98 (38-126) U/L Total Protein 7.0 (6.3-8.2) g/dL Albumin 4.1 (3.5-5.0) g/dL - Imaging CT scan - abdomen: report reviewed Assessment and Plan (1) Urinary retention Current Visit: Yes Status: Acute Code(s): R33.9 - RETENTION OF URINE, UNSPECIFIED SNOMED Code(s): 243113532 (2) Acquired hydronephrosis due to obstruction of bladder Current Visit: Yes Status: Acute Code(s): N13.30 - UNSPECIFIED HYDRONEPHROSIS; N32.0 - BLADDER-NECK OBSTRUCTION SNOMED Code(s): 989592029 Plan: A post-void residual be checked to assess bladder emptying. Time with Patient: Greater than 30
[2021-01-21 20:12] LABS: Glucose,Whole Blood 104 mg/dL (75-99)
[2021-01-21] MEDS: FUROSEMIDE 10 MG/ML 4 ML VIAL IV SCH (21:15)
[2021-01-22] MEDS ORDERED: FLUTICASONE 50MCG/SPRAY NASAL 16GM EA NOSTRIL PRN (00:31)
[2021-01-22] MEDS: ACETAMINOPHEN TAB 325 MG TAB PO PRN (01:18)
[2021-01-22 06:58] LABS: Glucose,Whole Blood 111 mg/dL (75-99)
[2021-01-22] MEDS: INSULIN ASPART (NovoLOG) 100 UNIT/ML VIAL SQ SCH ×4 (07:11→20:45)
[2021-01-22] MEDS: LOSARTAN 25 MG TAB PO SCH (07:22)
[2021-01-22] MEDS: HEPARIN SODIUM,PORCINE/PF 5,000 UNIT/0.5 ML SYRINGE SQ SCH ×3 (07:22→23:08)
[2021-01-22] MEDS: FUROSEMIDE 10 MG/ML 4 ML VIAL IV SCH ×3 (07:22→21:19)
[2021-01-22] MEDS: SPIRONOLACTONE 25 MG TAB PO SCH (07:22)
--- NOTE | 2021-01-22 09:00 | P.PN ---
Subjective Progress Note Date: 01/22/21 Principal diagnosis: Acute on chronic hypoxic and hypercapnic respiratory failure, interstitial lung disease/pulmonary fibrosis, and COPD 65-year-old obese male, who apparently does not see a family doctor has not seen a doctor in years, presents with the emergency room with complaints of shortness of breath, lower extremity edema, and increasing abdominal girth. The patient was noted to have significant clubbing of the fingers and toes. The patient doesn't smoke. He apparently has been smoking for a number of years although he quit for a period time as well. The patient complains of increasing shortness of breath, increasing abdominal girth, and lower extremities edema. His CAT scan did not reveal a pulmonary embolism. His examination was consistent with interstitial lung disease/pulmonary fibrosis. I suspect that likely to be his primary diagnosis. In addition, the patient likely also has secondary pulmonary hypertension, and cor pulmonale. He is currently on 15 L high flow oxygen. He appears to be mildly tachypnea. He keeps on dozing off to sleep. His saturations are in the low 90s. Temperature 97.6, heart rate 86, respiratory rate 22, and blood pressure 189/103. Currently admitted includes a white count 7.4, hemoglobin 17.7, hematocrit 56, and platelet count 147,000. PT, INR, and PTT are normal. Blood gases show a well compensated hypercapnea, with a PaO2 of 76. Sodium 138, potassium 4.1, chlorides 98, CO2 32, anion gap 8, BUN 16, and creatinine 0.82. Coronavirus testing is negative. On 01/22/2021 patient seen in follow-up on medical surgical floor, he remains on high flow oxygen, currently at 10 L, his pulse ox is 98%, he is in a chair, awake and alert, oriented 3, has a slightly congested cough, but overall breathing easier, she was started on Lasix, 40 mg every 12 hours, his echocardiogram did show moderate concentric LVH, moderately impaired LV function with an EF of 35-40%, mild aortic stenosis and regurgitation, mild MR, mild TR, and moderately severe pulmonary hypertension with right-sided pressure of 48.3 mmHg. Patient is diuresing, and he has produced 3.1 L of urine, and he is in - 1.8 the fluid balance over the last 24 hours. Cardiology consultation was requested and pending at this time. No complaints of chest pain. Patient's proBNP was elevated at 1650, Propulsid level was negative at 0.03, COVID-19 test was negative. Objective - Vital Signs Vital signs: Vital Signs Temp 98.1 F 01/22/21 07:38 Pulse 90 01/22/21 07:38 Resp 20 01/22/21 07:38 BP 143/96 01/22/21 08:07 Pulse Ox 90 L 01/22/21 07:38 Intake & Output 01/21/21 01/22/21 01/22/21 18:59 06:59 18:59 Intake Total 1220 Output Total 3100 300 Balance -1880 -300 Weight 104.9 kg Intake: Oral 1220 Output: Urine 3100 300 Other: # Voids 0 1 - Exam GENERAL EXAM: Alert, very pleasant, 65-year-old white male sitting up in the recliner, currently on 10 L of oxygen pulse ox is 90% comfortable in no apparent distress. HEAD: Normocephalic/atraumatic. EYES: Normal reaction of pupils, equal size. Conjunctiva pink, sclera white. NOSE: Clear with pink turbinates. THROAT: No erythema or exudates. NECK: No masses, no JVD, no thyroid enlargement, no adenopathy. CHEST: No chest wall deformity. Symmetrical expansion. LUNGS: Equal air entry with bilateral crackles CVS: Regular rate and rhythm, normal S1 and S2, no gallops, no murmurs, no rubs ABDOMEN: Soft, nontender. No hepatosplenomegaly, normal bowel sounds, no guarding or rigidity. EXTREMITIES: No clubbing, 1+ lower extremity edema, no cyanosis, 2+ pulses and upper and lower extremities. MUSCULOSKELETAL: Muscle strength and tone normal. SPINE: No scoliosis or deformity SKIN: No rashes CENTRAL NERVOUS SYSTEM: Alert and oriented -3. No focal deficits, tone is normal in all 4 extremities. PSYCHIATRIC: Alert and oriented -3. Appropriate affect. Intact judgment and insight. - Labs CBC & Chem 7: 01/20/21 21:05 01/20/21 21:05 Labs: Abnormal Lab Results - Last 24 Hours (Table) 01/21/21 01/21/21 01/21/21 Range/Units 10:38 11:14 16:36 POC Glucose (mg/dL) 147 H 121 H (75-99) mg/dL Ammonia 31 H (<30) umol/L 01/21/21 01/22/21 Range/Units 20:09 06:57 POC Glucose (mg/dL) 104 H 111 H (75-99) mg/dL Ammonia (<30) umol/L Assessment and Plan Plan: Assessment: #1. Acute on chronic hypoxic and hypercapnic respiratory failure, multifactorial, related to suspected long-standing interstitial lung disease/pulmonary fibrosis, acute COPD exacerbation, and new onset systolic CHF #2. Cardiomyopathy, with EF of 35-40% #3. Probable secondary pulmonary hypertension and cor pulmonale #4. Morbid obesity, with BMI of 36.2 kg/m #5. Rule out sleep apnea syndrome #6. Rule out pickwickian syndrome #7. Polycythemia, likely secondary to chronic lung disease #8. Prior history of tobacco use Plan: We will add IV steroids 40 mg every 8 hours of Solu-Medrol Patient is on diuretics, and maintaining negative fluid balance Continue attempting to wean FiO2 to maintain O2 saturation at or above 90% Follow-up chest x-ray tomorrow, Follow-up labs tomorrow, including CBC and a BMP I performed a history & physical examination of the patient and discussed their management with my nurse practitioner, Ary Dodd. I reviewed the nurse practitioner's note and agree with the documented findings and plan of care. Lung sounds are positive for crackles at the bases. The findings and the impression was discussed with the patient. I attest to the documentation by the nurse practitioner. Time with Patient: Less than 30
[2021-01-22] MEDS: IPRATROPIUM-ALBUTEROL 3 ML NEB INHALATION SCH ×4 (09:15→19:26)
[2021-01-22 11:38] LABS: Glucose,Whole Blood 112 mg/dL (75-99)
[2021-01-22 11:52] VITALS: BMI 36.2
[2021-01-22] MEDS: methylPREDNISolone SOD SUCCI 40 MG/ML 1 ML VIAL IV SCH ×3 (12:12→23:08)
[2021-01-22 12:17] LABS: HCT 58.1 % (39.6-50.0); HGB 17.5 g/dL (13.0-17.0); MCH 27.6 pg (27.0-32.0); MCHC 30.1 g/dL (32.0-37.0); MCV 91.5 fL (80.0-97.0); Platelet Count 167 X 10*3/uL (140-440); RBC 6.35 X 10*6/uL (4.40-5.60); RDW 16.6 % (11.5-14.5); WBC 9.56 X 10*3/uL (4.50-10.00)
--- NOTE | 2021-01-22 13:25 | P.CRDCN ---
History of Present Illness Consult date: 01/22/21 Chief complaint: Shortness of breath History of present illness: This is a very pleasant 65-year-old gentleman who we are asked to see for furthe r evaluation of congestive heart failure. The patient somewhat is a poor historian. He did not see a physician in long time. He does have history of hypertension. The patient presented to the emergency room complaining of increasing shortness of breath and also increasing in bilateral lower extent his edema for the last several weeks. He did not have any symptoms of chest pain or chest discomfort and no dizziness or lightheadedness and no feeling of heart racing or fluttering or syncope. The EKG showed sinus rhythm with prolonged QT interval. The troponin came in to be unremarkable. NT proBNP came in to be elevated. The patient was seen by the pulmonary team where he underwent a com puted tomography scan of the chest and that showed evidence of pulmonary fibrosis and pulmonary hypertension likely secondary to pulmonary fibrosis. Subsequently he underwent an echocardiogram and that revealed cardiomyopathy was EF around 35% which is apparently new. Currently he is on Aldactone as well as he is on ARB. The patient as a mentioned earlier never seen a nurse intern in the past. No coronary artery disease or diagnosed was congestive heart failure. Currently he is on Lasix at 40 mg IV twice a day and also he is on 15 L high flow oxygen. The blood work was reviewed completely as well as a computed tomography scan. On examination he does have definitely Ackles bilaterally and also mild bilateral expiratory wheezing and also mild JVD. Past Medical History Past Medical History: Hypertension History of Any Multi-Drug Resistant Organisms: None Reported Past Surgical History: No Surgical Hx Reported Additional Past Surgical History / Comment(s): surgery 25 yrs ago right flank surgery, pt does not know what kind it was. Past Anesthesia/Blood Transfusion Reactions: No Reported Reaction Past Psychological History: No Psychological Hx Reported Smoking Status: Former smoker Past Alcohol Use History: None Reported Past Drug Use History: None Reported Medications and Allergies Home Medications Medication Instructions Recorded Confirmed Type No Known Home Medications 01/20/21 01/20/21 History Allergies Allergy/AdvReac Type Severity Reaction Status Date / Time No Known Allergies Allergy Verified 01/20/21 21:41 Physical Exam Vitals: Vital Signs Temp Pulse Pulse Resp BP Pulse Ox 01/22/21 11:52 90 18 01/22/21 11:42 94 18 01/22/21 09:28 95 18 01/22/21 09:15 94 18 90 L 01/22/21 08:07 143/96 01/22/21 07:38 98.1 F 90 20 158/103 90 L 01/22/21 01:45 98.5 F 90 19 171/123 90 L 01/21/21 21:05 84 01/21/21 20:51 84 01/21/21 20:00 98.1 F 85 18 202/91 93 L 01/21/21 17:52 70 01/21/21 17:41 71 96 01/21/21 14:00 98.7 F 74 22 151/91 95 Intake and Output 01/21/21 01/22/21 01/22/21 22:59 06:59 14:59 Intake Total 1220 540 Output Total 900 2200 1450 Balance -900 -980 -910 Intake: Oral 1220 540 Output: Urine 900 2200 1000 Post Void Residual 450 Other: Voiding Method Toilet # Voids 1 1 Weight 104.9 kg 104.9 kg - Constitutional General appearance: no acute distress - Respiratory Respiratory: bilateral: rales - Cardiovascular Rhythm: regular Heart sounds: normal: S1, S2 Abnormal Heart Sounds: systolic murmur Results 01/22/21 07:42 01/20/21 21:05 CBC 01/22/21 Range/Units 07:42 WBC 9.56 (4.50-10.00) X 10*3/uL RBC 6.35 H (4.40-5.60) X 10*6/uL Hgb 17.5 H (13.0-17.0) g/dL Hct 58.1 H* (39.6-50.0) % Plt Count 167 (140-440) X 10*3/uL Current Medications Generic Name Dose Route Start Last Admin Trade Name Freq PRN Reason Stop Dose Admin Acetaminophen 650 mg 01/22/21 00:31 01/22/21 01:18 Acetaminophen Tab 325 Mg Tab PO 650 mg Q6HR PRN Administration Fever and/ or Pain Albuterol/Ipratropium 3 ml 01/21/21 08:00 01/22/21 11:41 Ipratropium-Albuterol 3 Ml Neb INHALATION 3 ml RT-QID ADELAIDA Administration Albuterol/Ipratropium 3 ml 01/21/21 02:53 Ipratropium-Albuterol 3 Ml Neb INHALATION RT-QID PRN Shortness Of Breath Or Wheezing Fluticasone Propionate 2 spray 01/22/21 00:31 01/22/21 01:14 Fluticasone 50mcg/[place] Nasal 16gm EA NOSTRIL 2 spray HS PRN Administration Allergy Symptoms Furosemide 40 mg 01/21/21 21:00 01/22/21 07:22 Furosemide 10 Mg/Ml 4 Ml Vial IV 40 mg Q12HR ADELAIDA Administration Heparin Sodium (Porcine) 5,000 unit 01/21/21 08:00 01/22/21 07:22 Heparin Sodium,Porcine/Pf 5,000 Unit/0.5 Ml Syringe SQ 5,000 unit Q8HR ADELAIDA Administration Insulin Aspart 0 unit 01/21/21 07:30 01/22/21 11:53 Insulin Aspart (Novolog) 100 Unit/Ml Vial SQ Not Given ACHS ADELAIDA Protocol Losartan Potassium 25 mg 01/22/21 09:00 01/22/21 07:22 Losartan 25 Mg Tab PO 25 mg DAILY ADELAIDA Administration Methylprednisolone Sodium Succinate 40 mg 01/22/21 08:00 01/22/21 12:12 Methylprednisolone Sod Succi 40 Mg/Ml 1 Ml Vial IV 40 mg Q8HR ADELAIDA Administration Naloxone HCl 0.2 mg 01/20/21 22:43 Naloxone 0.4 Mg/Ml 1 Ml Vial IV Q2M PRN Opioid Reversal Spironolactone 12.5 mg 01/22/21 09:00 01/22/21 07:22 Spironolactone 25 Mg Tab PO 12.5 mg DAILY ADELAIDA Administration Intake and Output 01/21/21 01/22/21 01/22/21 22:59 06:59 14:59 Intake Total 1220 540 Output Total 900 2200 1450 Balance -900 -980 -910 Intake: Oral 1220 540 Output: Urine 900 2200 1000 Post Void Residual 450 Other: Voiding Method Toilet # Voids 1 1 Weight 104.9 kg 104.9 kg Patient Weight 01/23/21 06:59 Weight 104.9 kg 01/22/21 07:42 01/20/21 21:05 Assessment and Plan Assessment: Assessment #1 acute hypoxic respiratory failure #2 probably a component of heart failure related to heart failure with reduced ejection fraction #3 cor pulmonale #4 cardiomyopathy of unknown etiology #5 multiple comorbid conditions Plan #1 continue the current dose of Lasix IV #2 continue monitor the kidney function and electrolytes #3 optimize the treatment for the cardiomyopathy #4 follow-up with the patient
--- NOTE | 2021-01-22 14:43 | P.PN ---
Subjective Progress Note Date: 01/22/21 (Delayed charting patient seen and 0945) Principal diagnosis: shortness of breath Patient is a 65-year-old male transferred here from [place] due to severe hypoxemia. He has a history of COPD and hypertension but had not physician in many years. At [place] he underwent an extensive evaluation. His labs were unremarkable however CT abdomen and pelvis showed distended urinary bladder with bilateral hydronephrosis as well as possible right lower lobe pulmonary nodule. Patient is referred here for further evaluation. He underwent a CTA of the chest which was negative for pulmonary embolism and showed some atelectasis area did urology and pulmonology were consulted. Pulmonary recommended outpatient follow-up for formalized PFTs bronchodilators, and steroids. Echocardiogram was completed which showed an ejection fraction of 35-40% with severe left ventricu lar hypertrophy and elevated RVSP. He was started on Lasix, Cozaar, and spironolactone. He was not started on a beta kitty due to respiratory status and newly discovered systolic heart failure and exacerbation. He was seen by cardiology who recommended continuing with current care. Patient seen and examined at bedside. Reports that breathing is somewhat better today than yesterday. Denies any nausea or vomiting. Denies any chest pain. We discussed that he will need to take medications and follow up with doctors on a regular basis. General: non toxic, no distress, appears at stated age Derm: warm, dry Head: atraumatic, normocephalic, symmetric Eyes: EOMI, no lid lag, anicteric sclera Mouth: no lip lesion, mucus membranes moist Cardiovascular: S1S2 reg, no murmur, positive posterior tibial pulse bilateral, Lungs: Wheezing bilateral, no rhonchi, no rales , no accessory muscle use Abdominal: soft, nontender to palpation, no guarding, no appreciable organomegaly Ext: no gross muscle atrophy, trace edema bilateral lower extremities, no contractures clubbing of bilateral hands, Neuro: CN II-XI grossly intact, no focal neuro deficits, asterixis, hypophonia with masked facies Psych: Alert, oriented, appropriate affect Acute exacerbation of COPD with acute on chronic hypoxic hypercapnic respiratory failure - bronchodilators, steroids -Pulmonary recommendations: Outpatient PFT, walk test, and HRCT -Wean O2 as able - procalcitonin negative and abx stopped Newly discovered systolic cardiomyopathy with 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-40%, acute exacerbation - Lasix, spironolactone - cozaar - no BB due to new excerbation and systolic - Cardiology recs appreciated - Telemetry - Strict I's and O's, daily weight Hydronephrosis with bladder outlet obstruction -Urology recommendations appreciated, monitor PVR - [place] Enlarged periaortic lymph nodes -Outpatient oncology evaluation -No obvious mass on CT abdomen and pelvis Elevated blood pressure without formal diagnosis of hypertension - lasix, spironolactone - follow BP Prolonged QT Hyperglycemia - SSI - await A1C Obesity with BMI 43.9 - outpatient structured weight loss DVT prophylaxis: SCDs Discussed with: patient, nursing Anticipated discharge: 2-[address]: home A total of 45 minutes was spent on the care of this complex patient more than 50% of the time was spent in counseling and care coordination. Objective - Vital Signs Vital signs: Vital Signs Temp 98.3 F 01/22/21 13:53 Pulse 88 01/22/21 13:53 Resp 19 01/22/21 14:03 BP 120/81 01/22/21 13:53 Pulse Ox 92 L 01/22/21 14:03 Intake & Output 01/21/21 01/22/21 01/22/21 18:59 06:59 18:59 Intake Total 1220 540 Output Total 3100 1450 Balance -1880 -910 Weight 104.9 kg 104.9 kg Intake: Oral 1220 540 Output: Urine 3100 1000 Post Void Residual 450 Other: Voiding Method Toilet # Voids 0 1 - Labs CBC & Chem 7: 01/22/21 07:42 01/20/21 21:05 Labs: Abnormal Lab Results - Last 24 Hours (Table) 01/21/21 01/21/21 01/22/21 Range/Units 16:36 20:09 06:57 RBC (4.40-5.60) X 10*6/uL Hgb (13.0-17.0) g/dL Hct (39.6-50.0) % MCHC (32.0-37.0) g/dL RDW (11.5-14.5) % POC Glucose (mg/dL) 121 H 104 H 111 H (75-99) mg/dL 01/22/21 01/22/21 Range/Units 07:42 11:37 RBC 6.35 H (4.40-5.60) X 10*6/uL Hgb 17.5 H (13.0-17.0) g/dL Hct 58.1 H* (39.6-50.0) % MCHC 30.1 L (32.0-37.0) g/dL RDW 16.6 H (11.5-14.5) % POC Glucose (mg/dL) 112 H (75-99) mg/dL
[2021-01-22 16:39] LABS: Glucose,Whole Blood 130 mg/dL (75-99)
[2021-01-22 17:02] LABS: Hemoglobin A1C 6.6 % (4.0-6.0)
[2021-01-22 19:02] LABS: African American GFR (CKD) 102.1 (60.0-200.0); Anion Gap 7.3 mmol/L (4.00-12.00); Calcium 9.3 mg/dL (8.7-10.3); Carbon Dioxide 38.7 mmol/L (21.6-31.8); Magnesium 1.8 mg/dL (1.5-2.4); Non-African American GFR(CKD) 88.1 (60.0-200.0); Potassium 3.8 mmol/L (3.5-5.5)
--- NOTE | 2021-01-22 20:41 | US ---
EXAMINATION TYPE: US kidneys/renal and bladder DATE OF EXAM: 01/22/2021 COMPARISON: CLINICAL HISTORY: Hydronephrosis. No pain EXAM MEASUREMENTS: Right Kidney: 13.0 x 5.3 x 6.1 cm Left Kidney: 11.6 x 5.1 x 6.3 cm Patient states he did not have to urinate and did not want to use the bathroom Right Kidney: No hydronephrosis or masses seen Left Kidney: No hydronephrosis or masses seen Bladder: moderately distended, anechoic Bilateral Jets not seen IMPRESSION: No evidence of renal mass or obstruction. No renal atrophy. Urinary bladder shows no evidence of a ma ss.
[2021-01-22 20:45] LABS: Glucose,Whole Blood 111 mg/dL (75-99)
[2021-01-22] MEDS: FLUTICASONE 50MCG/SPRAY NASAL 16GM EA NOSTRIL PRN (21:12)
[2021-01-23] MEDS: ACETAMINOPHEN TAB 325 MG TAB PO PRN (03:05)
--- NOTE | 2021-01-23 05:55 | P.PN ---
Subjective Progress Note Date: 01/23/21 Principal diagnosis: Shortness of breath. Acute on chronic hypoxic and hypercapnic respiratory failure, interstitial lung disease/pulmonary fibrosis, and COPD 65-year-old obese male, who apparently does not see a family doctor has not seen a doctor in years, presents with the emergency room with complaints of shortness of breath, lower extremity edema, and increasing abdominal girth. The patient was noted to have significant clubbing of the fingers and toes. The patient doesn't smoke. He apparently has been smoking for a number of years although he quit for a period time as well. The patient complains of increasing shortness of breath, increasing abdominal girth, and lower extremities edema. His CAT scan did not reveal a pulmonary embolism. His examination was consistent with interstitial lung disease/pulmonary fibrosis. I suspect that likely to be his primary diagnosis. In addition, the patient likely also has secondary pulmonary hypertension, and cor pulmonale. He is currently on 15 L high flow oxygen. He appears to be mildly tachypnea. He keeps on dozing off to sleep. His saturations are in the low 90s. Temperature 97.6, heart rate 86, respiratory rate 22, and blood pressure 189/103. Currently admitted includes a white count 7.4, hemoglobin 17.7, hematocrit 56, and platelet count 147,000. PT, INR, and PTT are normal. Blood gases show a well compensated hypercapnea, with a PaO2 of 76. Sodium 138, potassium 4.1, chlorides 98, CO2 32, anion gap 8, BUN 16, and creatinine 0.82. Coronavirus testing is negative. On 01/22/2021 patient seen in follow-up on medical surgical floor, he remains on high flow oxygen, currently at 10 L, his pulse ox is 98%, he is in a chair, awake and alert, oriented 3, has a slightly congested cough, but overall breathing easier, she was started on Lasix, 40 mg every 12 hours, his echocardiogram did show moderate concentric LVH, moderately impaired LV function with an EF of 35-40%, mild aortic stenosis and regurgitation, mild MR, mild TR, and moderately severe pulmonary hypertension with right-sided pressure of 48.3 mmHg. Patient is diuresing, and he has produced 3.1 L of urine, and he is in - 1.8 the fluid balance over the last 24 hours. Cardiology consultation was requested and pending at this time. No complaints of chest pain. Patient's proBNP was elevated at 1650, Propulsid level was negative at 0.03, COVID-19 test was negative. Progress note dated 01/23/2021. Currently, the patient remains on high flow nasal O2. Saturations are reasonable. The patient has a poor understanding of this condition. He wants to be discharged home. I told him we cannot provide the amount of oxygen that he is currently on, at home. In my opinion, the patient has pulmonary fibrosis. The patient has clubbing of the fingers and toes. I believe the patient has had long-standing chronic lung disease. Current vital signs show temperature 98.1, heart rate 86, respiratory rate 20, blood pressure 151/95, and his saturations between 90 and 91% on 15 L high flow nasal cannula. Laboratory data from yesterday shows a white count of 9.56, hemoglobin 17.5, hematocrit 58.1, and a normal platelet count. On his electrolyte profile, his carbon dioxide concentration is 39. Objective - Vital Signs Vital signs: Vital Signs Temp 98.1 F 01/23/21 02:16 Pulse 86 01/23/21 02:16 Resp 20 01/23/21 02:00 BP 151/95 01/23/21 02:16 Pulse Ox 90 L 01/23/21 02:16 Intake & Output 01/22/21 01/22/21 01/23/21 06:59 18:59 06:59 Intake Total 1220 540 Output Total 3100 1650 1725 Balance -1880 -1110 -1725 Weight 104.9 kg 104.9 kg 102.5 kg Intake: Oral 1220 540 Output: Urine 3100 1200 1725 Post Void Residual 450 Other: Voiding Method Toilet Urinal # Voids 1 1 - Exam Oriented 3, mild conversational dyspnea. No use of accessory muscles. No audible wheezing. Currently on high flow nasal O2. HEENT examination is grossly unremarkable. Neck supple. Full range of motion. No adenopathy thyromegaly or neck vein distention. Cardiovascular examination reveals regular rhythm rate. S1-S2 normal. No S3 or S4. No discernible murmur noted. Heart sounds are distant. Lungs reveal bibasilar crackles. He's mildly restricted in his breathing. No wheezes. Mild scattered rhonchi are noted. Abdomen obese but soft. Bowel sounds are noted. No tenderness or masses. Extremities are intact. The patient has finger and toe clubbing. No cyanosis. There is lower extremity edema. Skin is without rash or lesion. Neurologic examination is brief but nonfocal. - Labs CBC & Chem 7: 01/22/21 07:42 01/22/21 07:42 Labs: Abnormal Lab Results - Last 24 Hours (Table) 01/22/21 01/22/21 01/22/21 Range/Units 06:57 07:32 07:42 RBC 6.35 H (4.40-5.60) X 10*6/uL Hgb 17.5 H (13.0-17.0) g/dL Hct 58.1 H* (39.6-50.0) % MCHC 30.1 L (32.0-37.0) g/dL RDW 16.6 H (11.5-14.5) % Chloride (96-109) mmol/L Carbon Dioxide (21.6-31.8) mmol/L Glucose (70-110) mg/dL POC Glucose (mg/dL) 111 H (75-99) mg/dL Hemoglobin A1c 6.6 H (4.0-6.0) % 01/22/21 01/22/21 01/22/21 Range/Units 07:42 11:37 16:38 RBC (4.40-5.60) X 10*6/uL Hgb (13.0-17.0) g/dL Hct (39.6-50.0) % MCHC (32.0-37.0) g/dL RDW (11.5-14.5) % Chloride 92 L (96-109) mmol/L Carbon Dioxide 38.7 H (21.6-31.8) mmol/L Glucose 119 H (70-110) mg/dL POC Glucose (mg/dL) 112 H 130 H (75-99) mg/dL Hemoglobin A1c (4.0-6.0) % 01/22/21 Range/Units 20:42 RBC (4.40-5.60) X 10*6/uL Hgb (13.0-17.0) g/dL Hct (39.6-50.0) % MCHC (32.0-37.0) g/dL RDW (11.5-14.5) % Chloride (96-109) mmol/L Carbon Dioxide (21.6-31.8) mmol/L Glucose (70-110) mg/dL POC Glucose (mg/dL) 111 H (75-99) mg/dL Hemoglobin A1c (4.0-6.0) % Assessment and Plan Assessment: Acute and chronic hypoxemic and hypercapnic respiratory failure, in a patient who I suspect has long-standing interstitial lung disease/pulmonary fibrosis, as well as COPD from previous tobacco use. Probable secondary pulmonary hypertension and cor pulmonale. Morbid obesity. Rule out sleep apnea syndrome. Rule out Pickwickian syndrome. Polycythemia, likely secondary to chronic lung disease. No evidence of pulmonary embolism on CT angiogram. Prior history of tobacco use. Medical noncompliance. Plan: Plan dated 01/21/2021. The patient will need an echocardiogram. The patient should get a high- resolution computed tomography scan to rule out interstitial lung disease/pulmonary fibrosis. This can be done as an outpatient. He'll need outpatient follow-up including a 6 minute walk distance, and a complete PFT. Currently, he would benefit from breathing treatments and diuretics. Cardiology should see the patient as well. Additional recommendations and suggestions are forthcoming. The patient does not need antibiotics at this time. Plan dated 01/23/2021. The patient has a poor understanding of his current condition. He hasn't been to a doctor in years. The patient has had long-standing chronic lung disease in my opinion. His finger and toe clubbing. The patient will eventually need home oxygen. Prognosis is very guarded. We'll continue to follow the patient make recommendations were appropriate. The patient remains on appropriate medications including diuretics, and steroids. Time with Patient: Less than 30
--- NOTE | 2021-01-23 07:36 | XR ---
EXAMINATION TYPE: XR chest 1V portable DATE OF EXAM: 01/23/2021 Comparison: 01/20/2021 Clinical History: 65-year-old male shortness of breath Findings: The heart is mildly enlarged. Interstitial densities slightly improved from prior. Some patchy opacit ies noted at both lung bases. Impression: 1. Cardiomegaly with interstitial prominence, though slightly improved. Correlate to exclude mild pul monary vascular congestion. 2. Patchy bibasilar areas of atelectasis and/or infiltrates remain.
[2021-01-23 07:42] LABS: Glucose,Whole Blood 132 mg/dL (75-99)
[2021-01-23] MEDS: FUROSEMIDE 10 MG/ML 4 ML VIAL IV SCH ×2 (07:44→21:03)
[2021-01-23] MEDS: methylPREDNISolone SOD SUCCI 40 MG/ML 1 ML VIAL IV SCH ×3 (07:44→23:23)
[2021-01-23] MEDS: SPIRONOLACTONE 25 MG TAB PO SCH (07:44)
[2021-01-23] MEDS: INSULIN ASPART (NovoLOG) 100 UNIT/ML VIAL SQ SCH ×4 (07:44→21:02)
[2021-01-23] MEDS: LOSARTAN 25 MG TAB PO SCH (07:45)
[2021-01-23] MEDS: HEPARIN SODIUM,PORCINE/PF 5,000 UNIT/0.5 ML SYRINGE SQ SCH ×3 (07:45→23:24)
[2021-01-23] MEDS: IPRATROPIUM-ALBUTEROL 3 ML NEB INHALATION SCH ×4 (07:50→19:20)
[2021-01-23] MEDS ORDERED: LOSARTAN 25 MG TAB PO STA (08:56)
--- NOTE | 2021-01-23 10:17 | P.PN ---
Subjective Progress Note Date: 01/23/21 Principal diagnosis: Acute hypoxic respiratory failure This is a very pleasant 65-year-old gentleman who we are asked to see for further evaluation of congestive heart failure. The patient somewhat is a poor historian. He did not see a physician in long time. He does have history of hypertension. The patient presented to the emergency room complaining of increasing shortness of breath and also increasing in bilateral lower extent his edema for the last several weeks. He did not have any symptoms of chest pain or chest discomfort and no dizziness or lightheadedness and no feeling of heart racing or fluttering or syncope. The EKG showed sinus rhythm with prolonged QT interval. The troponin came in to be unremarkable. NT proBNP came in to be elevated. He underwent an echocardiogram and that revealed impaired LV function was EF around 35%. The patient was seen this morning. He continues to have shortness of breath and he continues to be on high flow oxygen. He is diuresing very well. Kidney function continues to be stable. The pressure was elevated at the dose of losartan was increased by the primary care which I would agree on. Beside that he is on Aldactone. He is on Lasix IV. I would continue that for at least additional 24 hours and continue following up with him. Once he is stable from the heart failure standpoint of view, we'll consider adding small dose of beta kitty and titrate the beta kitty as an outpatient. He definitely need to undergo coronary angiogram to rule out any severe underlying coronary artery disease and that can be done as an outpatient. Objective - Vital Signs Vital signs: Vital Signs Temp 98.5 F 01/23/21 08:00 Pulse 90 01/23/21 08:02 Resp 16 01/23/21 08:00 BP 169/90 01/23/21 08:00 Pulse Ox 90 L 01/23/21 08:00 Intake & Output 01/22/21 01/23/21 01/23/21 18:59 06:59 18:59 Intake Total 540 519 Output Total 1650 1725 Balance -1110 -1206 Weight 104.9 kg 102.5 kg Intake: Oral 540 519 Output: Urine 1200 1725 Post Void Residual 450 Other: Voiding Method Toilet Urinal # Voids 1 - Constitutional General appearance: Present: no acute distress - Respiratory Respiratory: bilateral: rales - Cardiovascular Rhythm: regular Heart sounds: normal: S1, S2 - Labs CBC & Chem 7: 01/22/21 07:42 01/22/21 07:42 Labs: Abnormal Lab Results - Last 24 Hours (Table) 01/22/21 01/22/21 01/22/21 Range/Units 07:32 07:42 07:42 RBC 6.35 H (4.40-5.60) X 10*6/uL Hgb 17.5 H (13.0-17.0) g/dL Hct 58.1 H* (39.6-50.0) % MCHC 30.1 L (32.0-37.0) g/dL RDW 16.6 H (11.5-14.5) % Chloride 92 L (96-109) mmol/L Carbon Dioxide 38.7 H (21.6-31.8) mmol/L Glucose 119 H (70-110) mg/dL POC Glucose (mg/dL) (75-99) mg/dL Hemoglobin A1c 6.6 H (4.0-6.0) % 01/22/21 01/22/21 01/22/21 Range/Units 11:37 16:38 20:42 RBC (4.40-5.60) X 10*6/uL Hgb (13.0-17.0) g/dL Hct (39.6-50.0) % MCHC (32.0-37.0) g/dL RDW (11.5-14.5) % Chloride (96-109) mmol/L Carbon Dioxide (21.6-31.8) mmol/L Glucose (70-110) mg/dL POC Glucose (mg/dL) 112 H 130 H 111 H (75-99) mg/dL Hemoglobin A1c (4.0-6.0) % 01/23/21 Range/Units 07:27 RBC (4.40-5.60) X 10*6/uL Hgb (13.0-17.0) g/dL Hct (39.6-50.0) % MCHC (32.0-37.0) g/dL RDW (11.5-14.5) % Chloride (96-109) mmol/L Carbon Dioxide (21.6-31.8) mmol/L Glucose (70-110) mg/dL POC Glucose (mg/dL) 132 H (75-99) mg/dL Hemoglobin A1c (4.0-6.0) % Assessment and Plan Assessment: Assessment #1 acute hypoxic respiratory failure #2 probably a component of heart failure related to heart failure with reduced ejection fraction #3 cor pulmonale #4 cardiomyopathy of unknown etiology #5 multiple comorbid conditions Plan #1 continue IV Lasix for additional 24 hours #2 continue Aldactone #3 consider coronary angiogram probably as an outpatient #4 consider adding beta kitty as a small dose once he is more stable and euvolemic and titrate that as an outpatient #5 follow-up with the patient
--- NOTE | 2021-01-23 10:32 | P.PN ---
Subjective Progress Note Date: 01/23/21 Principal diagnosis: shortness of breath Patient is a 65-year-old male transferred here from [place] due to severe hypoxemia. He has a history of COPD and hypertension but had not physician in many years. At [place] he underwent an extensive evaluation. His labs were unremarkable however CT abdomen and pelvis showed distended urinary bladder with bilateral hydronephrosis as well as possible right lower lobe pulmonary nodule. Patient is referred here for further evaluation. He underwent a CTA of the chest which was negative for pulmonary embolism and showed some atelectasis area did urology and pulmonology were consulted. Pulmonary recommended outpatient f ollow-up for formalized PFTs bronchodilators, and steroids. Echocardiogram was completed which showed an ejection fraction of 35-40% with severe left ventricular hypertrophy and elevated RVSP. He was started on Lasix, Cozaar, and spironolactone. He was not started on a beta kitty due to respiratory status and newly discovered systolic heart failure and exacerbation. He was seen by cardiology who recommended continuing with current care. Patient seen and examined at bedside. Asking to go home, does not understand the severity of his illness, we discussed this at length. He states that his breathing is at baseline, denies chest pain. General: non toxic, no distress, appears at stated age Derm: warm, dry Head: atraumatic, normocephalic, symmetric Eyes: EOMI, no lid lag, anicteric sclera Mouth: no lip lesion, mucus membranes moist Cardiovascular: S1S2 reg, no murmur, positive posterior tibial pulse bilateral, Lungs: Wheezing bilateral, no rhonchi, no rales , no accessory muscle use Abdominal: soft, nontender to palpation, no guarding, no appreciable organomegaly Ext: no gross muscle atrophy, trace edema bilateral lower extremities, no contractures clubbing of bilateral hands, Neuro: CN II-XI grossly intact, no focal neuro deficits, asterixis, hypophonia with masked facies Psych: Alert, oriented, appropriate affect Acute exacerbation of COPD with acute on chronic hypoxic hypercapnic respiratory failure - bronchodilators, steroids -Pulmonary recommendations: Outpatient PFT, walk test, and HRCT -Wean O2 as able - procalcitonin negative and abx stopped Newly discovered systolic cardiomyopathy with 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-40%, acute exacerbation - Lasix, spironolactone - cozaar - no BB due to new excerbation and systolic - Cardiology recs appreciated - Telemetry - Strict I's and O's, daily weight Hydronephrosis with bladder outlet obstruction -Urology recommendations appreciated, monitor PVR Enlarged periaortic lymph nodes -Outpatient oncology evaluation -No obvious mass on CT abdomen and pelvis Elevated blood pressure without formal diagnosis of hypertension - lasix, spironolactone - follow BP Prolonged QT Prediabetes with Hyperglycemia - SSI - A1C 6.6 - Due to the severity of his COPD and HF new diagnosis and severity of disease, focus should be on salt and fluid restriction. Recommend repeat A1C in 3 months, and would not recommend home monitoring at this time. Obesity with BMI 43.9 - outpatient structured weight loss DVT prophylaxis: SCDs Discussed with: patient, nursing Anticipated discharge: 2-[address]: home A total of 45 minutes was spent on the care of this complex patient more than 50% of the time was spent in counseling and care coordination. Objective - Vital Signs Vital signs: Vital Signs Temp 98.5 F 01/23/21 08:00 Pulse 90 01/23/21 08:02 Resp 16 01/23/21 08:00 BP 169/90 01/23/21 08:00 Pulse Ox 90 L 01/23/21 08:00 Intake & Output 01/22/21 01/23/21 01/23/21 18:59 06:59 18:59 Intake Total 540 519 Output Total 1650 1725 Balance -1110 -1206 Weight 104.9 kg 102.5 kg Intake: Oral 540 519 Output: Urine 1200 1725 Post Void Residual 450 Other: Voiding Method Toilet Urinal # Voids 1 - Labs CBC & Chem 7: 01/22/21 07:42 01/22/21 07:42 Labs: Abnormal Lab Results - Last 24 Hours (Table) 01/22/21 01/22/21 01/22/21 Range/Units 07:32 07:42 07:42 RBC 6.35 H (4.40-5.60) X 10*6/uL Hgb 17.5 H (13.0-17.0) g/dL Hct 58.1 H* (39.6-50.0) % MCHC 30.1 L (32.0-37.0) g/dL RDW 16.6 H (11.5-14.5) % Chloride 92 L (96-109) mmol/L Carbon Dioxide 38.7 H (21.6-31.8) mmol/L Glucose 119 H (70-110) mg/dL POC Glucose (mg/dL) (75-99) mg/dL Hemoglobin A1c 6.6 H (4.0-6.0) % 01/22/21 01/22/21 01/22/21 Range/Units 11:37 16:38 20:42 RBC (4.40-5.60) X 10*6/uL Hgb (13.0-17.0) g/dL Hct (39.6-50.0) % MCHC (32.0-37.0) g/dL RDW (11.5-14.5) % Chloride (96-109) mmol/L Carbon Dioxide (21.6-31.8) mmol/L Glucose (70-110) mg/dL POC Glucose (mg/dL) 112 H 130 H 111 H (75-99) mg/dL Hemoglobin A1c (4.0-6.0) % 01/23/21 Range/Units 07:27 RBC (4.40-5.60) X 10*6/uL Hgb (13.0-17.0) g/dL Hct (39.6-50.0) % MCHC (32.0-37.0) g/dL RDW (11.5-14.5) % Chloride (96-109) mmol/L Carbon Dioxide (21.6-31.8) mmol/L Glucose (70-110) mg/dL POC Glucose (mg/dL) 132 H (75-99) mg/dL Hemoglobin A1c (4.0-6.0) %
[2021-01-23 11:36] LABS: Glucose,Whole Blood 117 mg/dL (75-99)
[2021-01-23 12:14] LABS: African American GFR (CKD) 102.1 (60.0-200.0); BUN/Creat Ratio 26.67 Ratio (12.00-20.00); Calcium 9.3 mg/dL (8.7-10.3); Carbon Dioxide >40.0 mmol/L (21.6-31.8); Chloride 89 mmol/L (96-109); Glucose 125 mg/dL (70-110); Potassium 3.8 mmol/L (3.5-5.5); Sodium 138 mmol/L (135-145)
--- NOTE | 2021-01-23 12:20 | P.PN ---
Progress Note - Text Progress Note Date: 01/23/21 Mr. Boykin's postvoid residual was 146 mL. I reviewed the ER records from [facility]. It was stated that he was given Lasix prior to the CT scan, and that he voided well following the CT scan. This suggested that the presence of bladder distention and hydronephrosis may have been due to transient bladder overdistention. In view of this, a renal ultrasound was performed yesterday and showed no evidence of hydronephrosis. Mr. Boykin reports hesitancy but is not particularly bothered by his voiding symptoms. He requires no further evaluation at this time, but was given my card to follow up as needed. Please notify me if I can be of any further assistance.
[2021-01-23 12:26] LABS: Non-African American GFR(CKD) 88.1 (60.0-200.0)
[2021-01-23] MEDS: PSYLLIUM HUSK 100% 6 GM PACKET PO SCH (12:44)
[2021-01-23 13:24] LABS: HCT 58.1 % (39.6-50.0); HGB 17.8 g/dL (13.0-17.0); MCH 27.8 pg (27.0-32.0); MCHC 30.6 g/dL (32.0-37.0); MCV 90.8 fL (80.0-97.0); Mean Platelet Volume 12.3 fL (9.5-12.2); Platelet Count 179 X 10*3/uL (140-440); WBC 9.25 X 10*3/uL (4.50-10.00)
[2021-01-23 16:25] LABS: Glucose,Whole Blood 105 mg/dL (75-99)
[2021-01-23] MEDS ORDERED: cloNIDine HCL 0.2 MG TAB PO PRN (19:40)
[2021-01-23 20:26] LABS: Glucose,Whole Blood 132 mg/dL (75-99)
[2021-01-23] MEDS: FLUTICASONE 50MCG/SPRAY NASAL 16GM EA NOSTRIL PRN (21:03)
[2021-01-24 06:40] LABS: Glucose,Whole Blood 124 mg/dL (75-99)
[2021-01-24] MEDS: INSULIN ASPART (NovoLOG) 100 UNIT/ML VIAL SQ SCH ×4 (06:49→21:14)
[2021-01-24] MEDS: HEPARIN SODIUM,PORCINE/PF 5,000 UNIT/0.5 ML SYRINGE SQ SCH ×2 (07:48→15:49)
[2021-01-24] MEDS: methylPREDNISolone SOD SUCCI 40 MG/ML 1 ML VIAL IV SCH ×2 (07:48→15:49)
[2021-01-24] MEDS: SPIRONOLACTONE 25 MG TAB PO SCH (07:48)
[2021-01-24] MEDS: FUROSEMIDE 10 MG/ML 4 ML VIAL IV SCH ×2 (07:48→21:41)
[2021-01-24] MEDS: PSYLLIUM HUSK 100% 6 GM PACKET PO SCH (07:49)
[2021-01-24] MEDS: IPRATROPIUM-ALBUTEROL 3 ML NEB INHALATION SCH ×4 (08:07→19:42)
[2021-01-24] MEDS ORDERED: LOSARTAN 50 MG TAB PO SCH (09:00)
[2021-01-24] MEDS ORDERED: LOSARTAN 50 MG TAB PO STA (10:25)
--- NOTE | 2021-01-24 10:43 | P.PN ---
Subjective Progress Note Date: 01/24/21 Principal diagnosis: shortness of breath Patient is a 65-year-old male transferred here from [place] due to severe hypoxemia. He has a history of COPD and hypertension but had not physician in many years. At [place] he underwent an extensive evaluation. His labs were unremarkable however CT abdomen and pelvis showed distended urinary bladder with bilateral hydronephrosis as well as possible right lower lobe pulmonary nodule. Patient is referred here for further evaluation. He underwent a CTA of the chest which was negative for pulmonary embolism and showed some atelectasis area did urology and pulmonology were consulted. Pulmonary recommended outpatient f ollow-up for formalized PFTs bronchodilators, and steroids. Echocardiogram was completed which showed an ejection fraction of 35-40% with severe left ventricular hypertrophy and elevated RVSP. He was started on Lasix, Cozaar, and spironolactone. He was not started on a beta kitty due to respiratory status and newly discovered systolic heart failure and exacerbation. He was seen by cardiology who recommended continuing with current care. Renal US on 01/22 without hydronephrosis. Patient seen and examined at bedside. Patient again asking to go home. We discussed that he cannot go home due to his high oxygen requirement. He states that his breathing is at baseline, he denies any problems and states he wants to go home. We again discussed the risks of going home. General: non toxic, no distress, appears at stated age Derm: warm, dry Head: atraumatic, normocephalic, symmetric Eyes: EOMI, no lid lag, anicteric sclera Mouth: no lip lesion, mucus membranes moist Cardiovascular: S1S2 reg, no murmur, positive posterior tibial pulse bilateral, Lungs: Crackles bilateral, no rhonchi, no rales , no accessory muscle use Abdominal: soft, nontender to palpation, no guarding, no appreciable organomegaly Ext: no gross muscle atrophy, 2+ edema bilateral lower extremities, no contractu res clubbing of bilateral hands, Neuro: CN II-XI grossly intact, no focal neuro deficits,no asterixis, hypophonia with masked facies Psych: Alert, oriented, appropriate affect Acute exacerbation of COPD with acute on chronic hypoxic hypercapnic respiratory failure - bronchodilators, steroids -Pulmonary recommendations: Outpatient PFT, walk test, and HRCT -Wean O2 as able - procalcitonin negative and abx stopped Newly discovered systolic cardiomyopathy with 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-40%, acute ex acerbation - Lasix, spironolactone - cozaar increased to elevated blood pressures - no BB due to new excerbation and COPD - Cardiology recs appreciated : Likely will need cath in the future, likely as outpatient due to breathing difficulties this admission - Telemetry - Strict I's and O's, daily weight Hydronephrosis with bladder outlet obstruction -Likely due to lasix as no hydro on repeat US Prediabetes with Hyperglycemia - SSI - A1C 6.6 - Due to the severity of his COPD and HF new diagnosis and severity of disease, focus should be on salt and fluid restriction. Recommend repeat A1C in 3 months, and would not recommend home monitoring at this time. Enlarged periaortic lymph nodes -Outpatient oncology evaluation -No obvious mass on CT abdomen and pelvis Elevated blood pressure without formal diagnosis of hypertension - lasix, spironolactone - follow BP Prolonged QT Obesity with BMI 43.9 - outpatient structured weight loss DVT prophylaxis: SCDs Discussed with: patient, nursing, and Dr. Hamilton at bedside Anticipated discharge: 2-[address]: home A total of 45 minutes was spent on the care of this complex patient more than 50% of the time was spent in counseling and care coordination. Objective - Vital Signs Vital signs: Vital Signs Temp 97.6 F 01/24/21 08:00 Pulse 90 01/24/21 08:19 Resp 20 01/24/21 08:00 BP 167/98 01/24/21 08:00 Pulse Ox 92 L 01/24/21 08:07 Intake & Output 01/23/21 01/24/21 01/24/21 18:59 06:59 18:59 Intake Total 2520 295 Output Total 2049 1949 Balance 470 -1655 Weight 101.8 kg Intake: Oral 2520 295 Output: Urine 2049 1949 Other: Voiding Method Toilet # Voids 2 - Labs CBC & Chem 7: 01/23/21 06:50 01/23/21 06:50 Labs: Abnormal Lab Results - Last 24 Hours (Table) 01/23/21 01/23/21 01/23/21 Range/Units 06:50 06:50 11:35 RBC 6.40 H (4.40-5.60) X 10*6/uL Hgb 17.8 H (13.0-17.0) g/dL Hct 58.1 H* (39.6-50.0) % MCHC 30.6 L (32.0-37.0) g/dL RDW 16.0 H (11.5-14.5) % MPV 12.3 H (9.5-12.2) fL Chloride 89 L (96-109) mmol/L Carbon Dioxide >40.0 H* (21.6-31.8) mmol/L BUN/Creatinine Ratio 26.67 H (12.00-20.00) Ratio Glucose 125 H (70-110) mg/dL POC Glucose (mg/dL) 117 H (75-99) mg/dL 01/23/21 01/23/21 01/24/21 Range/Units 16:23 20:25 06:38 RBC (4.40-5.60) X 10*6/uL Hgb (13.0-17.0) g/dL Hct (39.6-50.0) % MCHC (32.0-37.0) g/dL RDW (11.5-14.5) % MPV (9.5-12.2) fL Chloride (96-109) mmol/L Carbon Dioxide (21.6-31.8) mmol/L BUN/Creatinine Ratio (12.00-20.00) Ratio Glucose (70-110) mg/dL POC Glucose (mg/dL) 105 H 132 H 124 H (75-99) mg/dL
--- NOTE | 2021-01-24 10:48 | P.PN ---
Subjective Progress Note Date: 01/24/21 Principal diagnosis: Acute hypoxic respiratory failure This is a very pleasant 65-year-old gentleman who we are asked to see for further evaluation of congestive heart failure. The patient somewhat is a poor historian. He did not see a physician in long time. He does have history of hypertension. The patient presented to the emergency room complaining of increasing shortness of breath and also increasing in bilateral lower extent his edema for the last several weeks. He did not have any symptoms of chest pain or chest discomfort and no dizziness or lightheadedness and no feeling of heart racing or fluttering or syncope. The EKG showed sinus rhythm with prolonged QT interval. The troponin came in to be unremarkable. NT proBNP came in to be elevated. He underwent an echocardiogram and that revealed impaired LV function was EF around 35%. The patient was seen today. He continues to have shortness of breath but it seems to be slightly better. On examination he does have bilateral expiratory wheezing and rhonchi in both lung bases. The pressure continues to be not well- controlled and the dose of losartan is going to be increased 200 mg by mouth daily. He is on Aldactone and he continues to be on Lasix IV. We are holding beta kitty at this point because of the heart failure and also because of the chronic lung disease and wheezing. He still on high flow oxygen at this point. We'll continue following up with him. The patient need to have coronary angiogram either as an inpatient or as an outpatient obstructive CAD Objective - Vital Signs Vital signs: Vital Signs Temp 97.6 F 01/24/21 08:00 Pulse 90 01/24/21 08:19 Resp 20 01/24/21 08:00 BP 167/98 01/24/21 08:00 Pulse Ox 92 L 01/24/21 08:07 Intake & Output 01/23/21 01/24/21 01/24/21 18:59 06:59 18:59 Intake Total 252 295 Output Total 2049 1949 Balance 470 -1655 Weight 101.8 kg Intake: Oral 2520 295 Output: Urine 2049 1949 Other: Voiding Method Toilet # Voids 2 - Constitutional General appearance: Present: no acute distress - Respiratory Respiratory: bilateral: rales, wheezing - Cardiovascular Rhythm: regular Heart sounds: normal: S1, S2 - Labs CBC & Chem 7: 01/23/21 06:50 01/23/21 06:50 Labs: Abnormal Lab Results - Last 24 Hours (Table) 01/23/21 01/23/21 01/23/21 Range/Units 06:50 06:50 11:35 RBC 6.40 H (4.40-5.60) X 10*6/uL Hgb 17.8 H (13.0-17.0) g/dL Hct 58.1 H* (39.6-50.0) % MCHC 30.6 L (32.0-37.0) g/dL RDW 16.0 H (11.5-14.5) % MPV 12.3 H (9.5-12.2) fL Chloride 89 L (96-109) mmol/L Carbon Dioxide >40.0 H* (21.6-31.8) mmol/L BUN/Creatinine Ratio 26.67 H (12.00-20.00) Ratio Glucose 125 H (70-110) mg/dL POC Glucose (mg/dL) 117 H (75-99) mg/dL 01/23/21 01/23/21 01/24/21 Range/Units 16:23 20:25 06:38 RBC (4.40-5.60) X 10*6/uL Hgb (13.0-17.0) g/dL Hct (39.6-50.0) % MCHC (32.0-37.0) g/dL RDW (11.5-14.5) % MPV (9.5-12.2) fL Chloride (96-109) mmol/L Carbon Dioxide (21.6-31.8) mmol/L BUN/Creatinine Ratio (12.00-20.00) Ratio Glucose (70-110) mg/dL POC Glucose (mg/dL) 105 H 132 H 124 H (75-99) mg/dL Assessment and Plan Assessment: Assessment #1 acute hypoxic respiratory failure #2 congestive heart failure exacerbation secondary to heart failure was reduced ejection fraction #3 severe cardiomyopathy of unknown etiology #4 hypertension #5 multiple comorbid conditions Plan #1 continue IV Lasix for additional 24 hours #2 continue Aldactone #3 consider coronary angiogram #4 increase the dose of losartan
--- NOTE | 2021-01-24 11:28 | CT ---
EXAMINATION TYPE: High-resolution CT chest DATE OF EXAM: 01/24/2021 COMPARISON: Correlation radiographs 01/23/[address] 01/20/2021 HISTORY: 65-year-old male Interstitial Pulmonary Fibrosis TECHNIQUE: Contiguous high resolution axial scanning of the chest per HRCT protocol without IV contra st. Both prone and supine imaging is performed. CT DLP: 1491.9 mGycm Automated exposure control for dose reduction was used. FINDINGS: Heart is mildly enlarged without pericardial effusion. Mildly aneurysmal aortic root at 4.0 cm. Aneurysmal upper descending thoracic aorta 4.0 cm. Mild athe rosclerotic arch calcifications. Conventional arch vessel branching anatomy. Large caliber to the main right and left pulmonary arteries at 3.0 and 2.9 cm, respectively, suggesti ng underlying pulmonary hypertension. No thoracic lymphadenopathy by CT size criteria. 1 there are some lower lobe veins of scarring and volume loss with mild bibasilar bronchiectasis. Add itional volume loss/consolidation involving a portion of the superior segment left lower lobe along t he descending aorta remains unchanged from 01/30/2021, probable cicatricial scarring of the basilar me dial left lower lobe and superior segment left lower lobe. No honeycombing, thickening of the bronchovascular bundles, dominant groundglass densities, dominant cystic changes. Small hiatal hernia. Otherwise, visualized upper abdomen shows no gross abnormal body. Cholecystectom y clips. Bones: No salvador osseous destructive process. IMPRESSION: 1. HRCT showing bands of scarring in the lower lobes with some associated mild bronchiectasis. Additi onal volume loss/consolidation involving portions of the superior segment left lower lobe and medial basilar left lower lobe, unchanged from 01/20/2021. Consider follow-up CT in 6 months to reassess and i f no improvement, consider endobronchial assessment. Findings probably sequela of prior infections. 2. Mild cardiomegaly with pulmonary arterial hypertension. Aneurysmal aortic root and upper descendin g thoracic aorta measuring up to 4.0 cm. 3. Otherwise, no specific HRCT findings of interstitial lung disease. 4. Small hiatal hernia.
--- NOTE | 2021-01-24 11:37 | P.PN ---
Subjective Progress Note Date: 01/24/21 Principal diagnosis: Acute on chronic hypoxic and hypercapnic respiratory failure, interstitial lung disease/pulmonary fibrosis, COPD 65-year-old obese male, who apparently does not see a family doctor has not seen a doctor in years, presents with the emergency room with complaints of shortness of breath, lower extremity edema, and increasing abdominal girth. The patient was noted to have significant clubbing of the fingers and toes. The patient doesn't smoke. He apparently has been smoking for a number of years although he quit for a period time as well. The patient complains of increasing shortness of breath, increasing abdominal girth, and lower extremities edema. His CAT scan did not reveal a pulmonary embolism. His examination was consistent with interstitial lung disease/pulmonary fibrosis. I suspect that likely to be his primary diagnosis. In addition, the patient likely also has secondary pulmonary hypertension, and cor pulmonale. He is currently on 15 L high flow oxygen. He appears to be mildly tachypnea. He keeps on dozing off to sleep. His saturations are in the low 90s. Temperature 97.6, heart rate 86, respiratory rate 22, and blood pressure 189/103. Currently admitted includes a white count 7.4, hemoglobin 17.7, hematocrit 56, and platelet count 147,000. PT, INR, and PTT are normal. Blood gases show a well compensated hypercapnea, with a PaO2 of 76. Sodium 138, potassium 4.1, chlorides 98, CO2 32, anion gap 8, BUN 16, and creatinine 0.82. Coronavirus testing is negative. On 01/22/2021 patient seen in follow-up on medical surgical floor, he remains on high flow oxygen, currently at 10 L, his pulse ox is 98%, he is in a chair, awake and alert, oriented 3, has a slightly congested cough, but overall breathing easier, she was started on Lasix, 40 mg every 12 hours, his echocardiogram did show moderate concentric LVH, moderately impaired LV function with an EF of 35-40%, mild aortic stenosis and regurgitation, mild MR, mild TR, and moderately severe pulmonary hypertension with right-sided pressure of 48.3 mmHg. Patient is diuresing, and he has produced 3.1 L of urine, and he is in - 1.8 the fluid balance over the last 24 hours. Cardiology consultation was requested and pending at this time. No complaints of chest pain. Patient's proBNP was elevated at 1650, Propulsid level was negative at 0.03, COVID-19 test was negative. Progress note dated 01/23/2021. Currently, the patient remains on high flow nasal O2. Saturations are reasonable. The patient has a poor understanding of this condition. He wants t o be discharged home. I told him we cannot provide the amount of oxygen that he is currently on, at home. In my opinion, the patient has pulmonary fibrosis. The patient has clubbing of the fingers and toes. I believe the patient has had long-standing chronic lung disease. Current vital signs show temperature 98.1, heart rate 86, respiratory rate 20, blood pressure 151/95, and his saturations between 90 and 91% on 15 L high flow nasal cannula. Laboratory data from yesterday shows a white count of 9.56, hemoglobin 17.5, hematocrit 58.1, and a normal platelet count. On his electrolyte profile, his carbon dioxide concentration is 39. The patient is seen today 01/24/2021 in follow-up on the regular medical floor. He is currently sitting up in a chair at the bedside. Awake and alert in no acute distress. He is still requiring 15 L high flow nasal cannula to maintain O2 saturations in the low 90s. He is afebrile. Hemodynamically stable. Blood glucose 124. He remains on IV Lasix 40 mg every 12 hours, bronchodilators. Unable to titrate down the FiO2. High-resolution computed tomography scan performed today reveals bands of scarring in the lower lobes was some associated mild bronchiectasis. Additional volume loss/consolidation forming portions of his superior segment left lower lobe and medial basilar left lower lobe. Findings probably sequela of prior infections. No specific findings of ILD. There was mild cardiomegaly with pulmonary arterial hypertension. Objective - Vital Signs Vital signs: Vital Signs Temp 97.6 F 01/24/21 08:00 Pulse 90 01/24/21 08:19 Resp 20 01/24/21 08:00 BP 167/98 01/24/21 08:00 Pulse Ox 92 L 01/24/21 08:07 Intake & Output 01/23/21 01/24/21 01/24/21 18:59 06:59 18:59 Intake Total 252 295 Output Total 2049 1950 Balance 470 -1655 Weight 101.8 kg Intake: Oral 2520 295 Output: Urine 2049 1949 Other: Voiding Method Toilet # Voids 2 - Exam GENERAL EXAM: Alert, morbidly obese 65-year-old gentleman, on 15 L high flow nasal cannula, comfortable in no apparent distress. HEAD: Normocephalic. EYES: Normal reaction of pupils, equal size. NOSE: Clear with pink turbinates. THROAT: No erythema or exudates. NECK: No masses, no JVD. CHEST: No chest wall deformity. LUNGS: Equal air entry with no crackles, wheeze, rhonchi or dullness. CVS: S1 and S2 normal with no audible murmur, regular rhythm. ABDOMEN: No hepatosplenomegaly, normal bowel sounds, no guarding or rigidity. SPINE: No scoliosis or deformity SKIN: No rashes CENTRAL NERVOUS SYSTEM: No focal deficits, tone is normal in all 4 extremities. EXTREMITIES: There is no peripheral edema. Positive for clubbing, no cyanosis. Peripheral pulses are intact. - Labs CBC & Chem 7: 01/23/21 06:50 01/23/21 06:50 Labs: Abnormal Lab Results - Last 24 Hours (Table) 01/23/21 01/23/21 01/23/21 Range/Units 06:50 06:50 11:35 RBC 6.40 H (4.40-5.60) X 10*6/uL Hgb 17.8 H (13.0-17.0) g/dL Hct 58.1 H* (39.6-50.0) % MCHC 30.6 L (32.0-37.0) g/dL RDW 16.0 H (11.5-14.5) % MPV 12.3 H (9.5-12.2) fL Chloride 89 L (96-109) mmol/L Carbon Dioxide >40.0 H* (21.6-31.8) mmol/L BUN/Creatinine Ratio 26.67 H (12.00-20.00) Ratio Glucose 125 H (70-110) mg/dL POC Glucose (mg/dL) 117 H (75-99) mg/dL 01/23/21 01/23/21 01/24/21 Range/Units 16:23 20:25 06:38 RBC (4.40-5.60) X 10*6/uL Hgb (13.0-17.0) g/dL Hct (39.6-50.0) % MCHC (32.0-37.0) g/dL RDW (11.5-14.5) % MPV (9.5-12.2) fL Chloride (96-109) mmol/L Carbon Dioxide (21.6-31.8) mmol/L BUN/Creatinine Ratio (12.00-20.00) Ratio Glucose (70-110) mg/dL POC Glucose (mg/dL) 105 H 132 H 124 H (75-99) mg/dL Assessment and Plan Assessment: 1 Acute on chronic hypoxemic/hypercapnic respiratory failure secondary to suspected obstructive sleep apnea, pickwickian syndrome and pulmonary arterial hypertension 2 Probable secondary pulmonary hypertension and cor pulmonale. 3 Morbid obesity. 4 Suspect sleep apnea syndrome. 5 Suspect Pickwickian syndrome. 6 Polycythemia, likely secondary to chronic lung disease. 7 No evidence of pulmonary embolism on CT angiogram. 8 Prior history of tobacco use. 9 Significant clubbing 10 Medical noncompliance. Plan: The patient was seen and evaluated by Dr. Ortega High-resolution computed tomography scan of the chest reviewed No evidence of interstitial lung disease Suspected BRENDA/pickwickian syndrome with pulmonary arterial hypertension Continue to titrate down the FiO2 as tolerated Continue bronchodilators, diuretics We will continue to follow I, the cosigning physician, performed a history & physical examination of the pa tient. Lungs sounds are clear. Diminished. Maintaining good O2 saturations in the 90s on 15 L high flow nasal cannula. I discussed the assessment and plan of care with my nurse practitioner, Mia Verdugo. I attest to the above note as dictated by her.
[2021-01-24 11:47] LABS: Glucose,Whole Blood 129 mg/dL (75-99)
[2021-01-24 16:40] LABS: Glucose,Whole Blood 132 mg/dL (75-99)
[2021-01-24 21:15] LABS: Glucose,Whole Blood 122 mg/dL (75-99)
[2021-01-25] MEDS: methylPREDNISolone SOD SUCCI 40 MG/ML 1 ML VIAL IV SCH ×2 (00:47→08:00)
[2021-01-25] MEDS: HEPARIN SODIUM,PORCINE/PF 5,000 UNIT/0.5 ML SYRINGE SQ SCH ×4 (00:47→23:33)
[2021-01-25] MEDS: FLUTICASONE 50MCG/SPRAY NASAL 16GM EA NOSTRIL PRN ×2 (03:24→08:01)
[2021-01-25 06:46] LABS: Glucose,Whole Blood 130 mg/dL (75-99)
[2021-01-25] MEDS: IPRATROPIUM-ALBUTEROL 3 ML NEB INHALATION SCH ×4 (07:53→20:39)
[2021-01-25] MEDS: INSULIN ASPART (NovoLOG) 100 UNIT/ML VIAL SQ SCH ×4 (08:00→21:42)
[2021-01-25] MEDS: FUROSEMIDE 10 MG/ML 4 ML VIAL IV SCH (08:00)
[2021-01-25] MEDS: LOSARTAN 50 MG TAB PO SCH (08:00)
[2021-01-25] MEDS: PSYLLIUM HUSK 100% 6 GM PACKET PO SCH (08:01)
[2021-01-25] MEDS: SPIRONOLACTONE 25 MG TAB PO SCH (08:01)
--- NOTE | 2021-01-25 11:22 | P.PN ---
Subjective Progress Note Date: 01/25/21 HISTORY OF PRESENT ILLNESS: This is a very pleasant 65-year-old gentleman who we are asked to see for further evaluation of congestive heart failure. The patient somewhat is a poor historian. He did not see a physician in long time. He does have history of hypertension. The patient presented to the emergency room complaining of increasing shortness of breath and also increasing in bilateral lower extent his edema for the last several weeks. He did not have any symptoms of chest pain or chest discomfort and no dizziness or lightheadedness and no feeling of heart racing or fluttering or syncope. The EKG showed sinus rhythm with prolonged QT interval. The troponin came in to be unremarkable. NT proBNP came in to be elevated. He underwent an echocardiogram and that revealed impaired LV function was EF around 35%. The patient was seen today. He continues to have shortness of breath but it seems to be slightly better. On examination he does have bilateral expiratory wheezing and rhonchi in both lung bases. The pressure continues to be not well- controlled and the dose of losartan is going to be increased 200 mg by mouth daily. He is on Aldactone and he continues to be on Lasix IV. We are holding beta kitty at this point because of the heart failure and also because of the chronic lung disease and wheezing. He still on high flow oxygen at this point. We'll continue following up with him. The patient need to have coronary angiogram either as an inpatient or as an outpatient obstructive CAD 01/25/2021 Patient examined this morning at the bedside. Patient states he does not follow with a carder blankets. He denies having previous lung or heart issues. He is a former smoker of 40 years. Patient denies chest pain or pressure. He denies shortness of breath, however he is requiring nasal cannula to maintain oxygen saturations greater than 92%. Blood pressure 156/96. PHYSICAL EXAM: VITAL SIGNS: Reviewed. GENERAL: Well-developed in no acute distress. NECK: Supple. No JVD or thyromegaly LUNGS: Respirations even and unlabored. Lungs diminished with scattered rhonchi. HEART: Regular rate and rhythm. S1 and S2 heard. EXTREMITIES: Normal range of motion. No clubbing or cyanosis. Peripheral pulses intact. Trace bilateral lower extremity edema ASSESSMENT: Acute hypoxic respiratory failure secondary to suspected obstructive sleep apnea, pickwickian syndrome and pulmonary arterial hypertension per pulmonary Acute systolic heart failure Cardiomyopathy of unknown etiology Hypertension PLAN: IV lasix discontinued today per medicine Begin oral lasix 20mg BID Accurate I&O Daily weights Monitor kidney function Initiate Coreg 6.25 mg twice a day, aspirin 81 mg daily, and atorvastatin 20 mg daily Obtain lipid panel Patient will require coronary angiogram when he is medically stable Further recommendations any patient course Nurse practitioner note has been reviewed by physician. Signing provider agrees with the documented findings, assessment, and plan of care. Objective - Vital Signs Vital signs: Vital Signs Temp 98.2 F 01/25/21 08:00 Pulse 92 01/25/21 11:08 Resp 20 01/25/21 08:00 BP 156/96 01/25/21 08:00 Pulse Ox 90 L 01/25/21 08:00 Intake & Output 01/24/21 01/25/21 01/25/21 18:59 06:59 18:59 Intake Total 1222 700 Output Total 2250 1250 Balance -1028 -550 Weight 101 kg Intake: Oral 1222 700 Output: Urine 2250 1250 Other: Voiding Method Toilet Toilet - Labs CBC & Chem 7: 01/23/21 06:50 01/23/21 06:50 Labs: Abnormal Lab Results - Last 24 Hours (Table) 01/24/21 01/24/21 01/24/21 Range/Units 11:46 16:38 21:12 POC Glucose (mg/dL) 129 H 132 H 122 H (75-99) mg/dL 01/25/21 Range/Units 06:45 POC Glucose (mg/dL) 130 H (75-99) mg/dL
[2021-01-25 11:29] LABS: Glucose,Whole Blood 107 mg/dL (75-99)
[2021-01-25 11:49] LABS: HGB 18.2 g/dL (13.0-17.0); MCHC 30.3 g/dL (32.0-37.0); MCV 92.2 fL (80.0-97.0); Mean Platelet Volume 11.7 fL (9.5-12.2); Platelet Count 167 X 10*3/uL (140-440); RBC 6.51 X 10*6/uL (4.40-5.60); RDW 16.7 % (11.5-14.5); WBC 8.64 X 10*3/uL (4.50-10.00)
--- NOTE | 2021-01-25 12:06 | P.PN ---
Subjective Progress Note Date: 01/25/21 Acute on chronic hypoxic and hypercapnic respiratory failure, interstitial lung disease/pulmonary fibrosis, COPD 65-year-old obese male, who apparently does not see a family doctor has not seen a doctor in years, presents with the emergency room with complaints of shortness of breath, lower extremity edema, and increasing abdominal girth. The patient was noted to have significant clubbing of the fingers and toes. The patient doesn't smoke. He apparently has been smoking for a number of years although he quit for a period time as well. The patient complains of increasing shortness of breath, increasing abdominal girth, and lower extremities edema. His CAT scan did not reveal a pulmonary embolism. His examination was consistent with interstitial lung disease/pulmonary fibrosis. I suspect that likely to be his primary diagnosis. In addition, the patient likely also has secondary pulmonary hypertension, and cor pulmonale. He is currently on 15 L high flow oxygen. He appears to be mildly tachypnea. He keeps on dozing off to sleep. His saturations are in the low 90s. Temperature 97.6, heart rate 86, respiratory rate 22, and blood pressure 189/103. Currently admitted includes a white count 7.4, hemoglobin 17.7, hematocrit 56, and platelet count 147,000. PT, INR, and PTT are normal. Blood gases show a well compensated hypercapnea, with a PaO2 of 76. Sodium 138, potassium 4.1, chlorides 98, CO2 32, anion gap 8, BUN 16, and creatinine 0.82. Coronavirus testing is negative. On 01/22/2021 patient seen in follow-up on medical surgical floor, he remains on high flow oxygen, currently at 10 L, his pulse ox is 98%, he is in a chair, awake and alert, oriented 3, has a slightly congested cough, but overall breathing easier, she was started on Lasix, 40 mg every 12 hours, his echocardiogram did show moderate concentric LVH, moderately impaired LV function with an EF of 35-40%, mild aortic stenosis and regurgitation, mild MR, mild TR, and moderately severe pulmonary hypertension with right-sided pressure of 48.3 mmHg. Patient is diuresing, and he has produced 3.1 L of urine, and he is in - 1.8 the fluid balance over the last 24 hours. Cardiology consultation was re quested and pending at this time. No complaints of chest pain. Patient's proBNP was elevated at 1650, Propulsid level was negative at 0.03, COVID-19 test was negative. Progress note dated 01/23/2021. Currently, the patient remains on high flow nasal O2. Saturations are reasonable. The patient has a poor understanding of this condition. He wants to be discharged home. I told him we cannot provide the amount of oxygen that he is currently on, at home. In my opinion, the patient has pulmonary fibrosis. The patient has clubbing of the fingers and toes. I believe the patient has had long-standing chronic lung disease. Current vital signs show temperature 98.1, heart rate 86, respiratory rate 20, blood pressure 151/95, and his saturations between 90 and 91% on 15 L high flow nasal cannula. Laboratory data from yesterday shows a white count of 9.56, hemoglobin 17.5, hematocrit 58.1, and a normal platelet count. On his electrolyte profile, his carbon dioxide concentration is 39. The patient is seen today 01/24/2021 in follow-up on the regular medical floor. He is currently sitting up in a chair at the bedside. Awake and alert in no acute distress. He is still requiring 15 L high flow nasal cannula to maintain O2 saturations in the low 90s. He is afebrile. Hemodynamically stable. Blood glucose 124. He remains on IV Lasix 40 mg every 12 hours, bronchodilators. Unable to titrate down the FiO2. High-resolution computed tomography scan performed today reveals bands of scarring in the lower lobes was some associated mild bronchiectasis. Additional volume loss/consolidation forming portions of his superior segment left lower lobe and medial basilar left lower lobe. Findings probably sequela of prior infections. No specific findings of ILD. There was mild cardiomegaly with pulmonary arterial hypertension. 01/25/2021, I'm seeing the patient for a follow-up. Very much sleepy. Fatigued and tired at all times. He is snoring all the time even while awake and talking to me. He has significant crowding of the posterior pharynx and Mallampati class IV. At the same time, the patient is somnolent, sleepy, has chronic CO2 retention, he has compensated running hypoxic and hypercapnic respiratory failure. His HRCT showed no evidence of any interstitial lung disease. His echo cardiac exam showed a moderate degree of pulmonary hypertension. This is a case of severe obstructive sleep apnea//obesity hypoventilation syndrome along with a component of COPD. The patient was taken off the IV diuretics and currently is on oral diuretics. COVID-19 testing is been negative. No chest pain. Less short of breath. Objective - Vital Signs Vital signs: Vital Signs Temp 98.2 F 01/25/21 08:00 Pulse 96 01/25/21 11:16 Resp 20 01/25/21 08:00 BP 156/96 01/25/21 08:00 Pulse Ox 90 L 01/25/21 08:00 Intake & Output 01/24/21 01/25/21 01/25/21 18:59 06:59 18:59 Intake Total 1222 700 Output Total 2250 1250 Balance -1028 -550 Weight 101 kg Intake: Oral 1222 700 Output: Urine 2250 1250 Other: Voiding Method Toilet Toilet - Exam GENERAL EXAM: Alert, morbidly obese 65-year-old gentleman, on 5 L high flow nasal cannula, comfortable in no apparent distress. HEAD: Normocephalic. EYES: Normal reaction of pupils, equal size. NOSE: Clear with pink turbinates. THROAT: No erythema or exudates. Patient has significant crowding of the posterior oropharynx and a Mallampati class IV. NECK: No masses, no JVD. CHEST: No chest wall deformity. LUNGS: Equal air entry with no crackles, wheeze, rhonchi or dullness. CVS: S1 and S2 normal with no audible murmur, regular rhythm. ABDOMEN: No hepatosplenomegaly, normal bowel sounds, no guarding or rigidity. SPINE: No scoliosis or deformity SKIN: No rashes CENTRAL NERVOUS SYSTEM: No focal deficits, tone is normal in all 4 extremities. EXTREMITIES: There is no peripheral edema. Positive for clubbing, - Labs CBC & Chem 7: 01/25/21 07:23 01/23/21 06:50 Labs: Abnormal Lab Results - Last 24 Hours (Table) 01/24/21 01/24/21 01/25/21 Range/Units 16:38 21:12 06:45 RBC (4.40-5.60) X 10*6/uL Hgb (13.0-17.0) g/dL Hct (39.6-50.0) % MCHC (32.0-37.0) g/dL RDW (11.5-14.5) % POC Glucose (mg/dL) 132 H 122 H 130 H (75-99) mg/dL 01/25/21 01/25/21 Range/Units 07:23 11:27 RBC 6.51 H (4.40-5.60) X 10*6/uL Hgb 18.2 H (13.0-17.0) g/dL Hct 60.0 H* (39.6-50.0) % MCHC 30.3 L (32.0-37.0) g/dL RDW 16.7 H (11.5-14.5) % POC Glucose (mg/dL) 107 H (75-99) mg/dL Assessment and Plan Plan: 1 Acute on chronic hypoxemic/hypercapnic respiratory failure secondary to suspected obstructive sleep apnea, pickwickian syndrome and pulmonary arterial hypertension 2 Probable secondary pulmonary hypertension and cor pulmonale. 3 Morbid obesity. 4 Suspect sleep apnea syndrome. 5 Suspect Pickwickian syndrome. 6 Polycythemia, likely secondary to chronic lung disease. 7 No evidence of pulmonary embolism on CT angiogram. 8 Prior history of tobacco use. 9 Significant clubbing 10 Medical noncompliance. 11 CHF with an ejection fraction of 30-35% consistent with chronic systolic heart failure, with a possible acute exacerbation at time of admission Plan: This patient is in need for an immediate sleep study and he needs to be utilizing a noninvasive positive pressure ventilator and will help with his obstructive sleep apnea/obesity hypoventilation syndrome in addition to his obstructive sleep apnea. He is actively symptomatic. He has chronic com pensated hypercapnic and hypoxic respiratory failure. I would suggest discharging home on oxygen and the flow will be titrated to maintain a saturation above 90%. I'll be glad to see him as an outpatient basis to provide him service regarding his severe BRENDA. This patient severe case. The patient is falling asleep even while talking to me. He is also snoring while awake. Suspected BRENDA/pickwickian syndrome with pulmonary arterial hypertension Recheck Recheck ABGs on 5 L of oxygen by nasal cannula Continue to titrate down the FiO2 as tolerated Continue bronchodilators, diuretics We will continue to follow
[2021-01-25 12:10] LABS: African American GFR (CKD) 89.9 (60.0-200.0); Anion Gap 11.3 mmol/L (4.00-12.00); Calcium 9.5 mg/dL (8.7-10.3); Carbon Dioxide 38.7 mmol/L (21.6-31.8); Non-African American GFR(CKD) 77.5 (60.0-200.0); Potassium 4.3 mmol/L (3.5-5.5)
[2021-01-25 12:22] LABS: ABG Base Excess 21.4 mmol/L; ABG PH 7.36 (7.35-7.45); ABG PO2 63 mmHg (83-108); ABG TCO2 49 mmol/L (19-24); Allen Test Performed? Yes
[2021-01-25 12:37] LABS: ABG HCO3 47 mmol/L (21-25); ABG PCO2 84 mmHg (35-45)
--- NOTE | 2021-01-25 13:08 | CT ---
EXAMINATION TYPE: CT sinus wo con DATE OF EXAM: 01/25/2021 COMPARISON: NONE HISTORY: Nasal congestion. CT DLP: 440.5 mGycm. Automated Exposure Control for Dose Reduction was Utilized. TECHNIQUE: CT scan of the sinuses is performed without contrast, axial images are obtained, coronal r eformatted images are also reviewed. FINDINGS: Left maxillary sinus has heterogeneous material completely filling with some wall thickenin g and sclerosis most prominent along the lateral aspect. There is extension of heterogeneous material into the left nasal vault and ethmoid sinuses without bony destruction. There is rather bony thicken ing and sclerosis at level of the antrum. Nasal septum is deviated to left of midline. Mild to modera te patchy opacification of the ethmoid sinuses bilaterally. Mild mucosal thickening involving frontal sinuses bilaterally. No suspicious opacification of the sphenoid sinuses. The ostiomeatal complex is patent on the right on coronal image 31 and occluded on the left. Visualized portion of mastoid air cells show no abnormal opacification. The globes are intact bilate rally. Visualized brain parenchyma is unremarkable. IMPRESSION: Chronic left maxillary sinus disease and/or possible mass based on thickened sclerotic wa lls. Advise ENT referral. Occlusion of left ostiomeatal complex noted. Bilateral ethmoid sinus disea se.
[2021-01-25 15:36] LABS: Chol/HDL Ratio 4.12; LDL Cholesterol,Calculated 107.2 mg/dL (0.0-131.0); VLDL Calculation 23.8 mg/dL (5.00-40.00)
--- NOTE | 2021-01-25 15:57 | P.PN ---
Subjective Progress Note Date: 01/25/21 Patient is doing well today. He was on 15 L of oxygen via high flow nasal cannula when I saw her this morning satting around 86%. I did decrease his oxygen to 5 L and his O2 sats remained anywhere between 86-90%. Patient denies any shortness of breath. Objective - Vital Signs Vital signs: Vital Signs Temp 97.7 F 01/25/21 13:47 Pulse 91 01/25/21 13:47 Resp 20 01/25/21 13:47 BP 100/69 01/25/21 13:47 Pulse Ox 95 01/25/21 13:47 Intake & Output 01/24/21 01/25/21 01/25/21 18:59 06:59 18:59 Intake Total 1222 700 Output Total 2250 1250 Balance -1028 -550 Weight 101 kg Intake: Oral 1222 700 Output: Urine 2250 1250 Other: Voiding Method Toilet Toilet - Exam General: The patient is awake and alert, in no distress Eye: there is normal conjunctiva bilaterally. Neck: The neck is supple, there is no JVD. Cardiovascular: Normal S1-S2, no S3-S4, no murmurs. Respiratory: Lungs clear to auscultation bilaterally Gastrointestinal: Abdomen is soft, nontender Musculoskeletal: There is no pedal edema. Neurological:. Speech is normal. Skin: Skin is warm and dry - Labs CBC & Chem 7: 01/25/21 07:23 01/25/21 07:23 Labs: Abnormal Lab Results - Last 24 Hours (Table) 01/24/21 01/24/21 01/25/21 Range/Units 16:38 21:12 06:45 RBC (4.40-5.60) X 10*6/uL Hgb (13.0-17.0) g/dL Hct (39.6-50.0) % MCHC (32.0-37.0) g/dL RDW (11.5-14.5) % ABG pCO2 (35-45) mmHg ABG pO2 (83-108) mmHg ABG HCO3 (21-25) mmol/L ABG Total CO2 (19-24) mmol/L ABG O2 Saturation (94-97) % Chloride (96-109) mmol/L Carbon Dioxide (21.6-31.8) mmol/L BUN (9.0-27.0) mg/dL BUN/Creatinine Ratio (.00-20.00) Ratio Glucose (70-110) mg/dL POC Glucose (mg/dL) 132 H 122 H 130 H (75-99) mg/dL 01/25/21 01/25/21 01/25/21 Range/Units 07:23 07:23 11:27 RBC 6.51 H (4.40-5.60) X 10*6/uL Hgb 18.2 H (13.0-17.0) g/dL Hct 60.0 H* (39.6-50.0) % MCHC 30.3 L (32.0-37.0) g/dL RDW 16.7 H (11.5-14.5) % ABG pCO2 (35-45) mmHg ABG pO2 (83-108) mmHg ABG HCO3 (21-25) mmol/L ABG Total CO2 (19-24) mmol/L ABG O2 Saturation (94-97) % Chloride 89 L (96-109) mmol/L Carbon Dioxide 38.7 H (21.6-31.8) mmol/L BUN 30.0 H (9.0-27.0) mg/dL BUN/Creatinine Ratio 30.00 H (12.00-20.00) Ratio Glucose 117 H (70-110) mg/dL POC Glucose (mg/dL) 107 H (75-99) mg/dL 01/25/21 Range/Units 12:19 RBC (4.40-5.60) X 10*6/uL Hgb (13.0-17.0) g/dL Hct (39.6-50.0) % MCHC (32.0-37.0) g/dL RDW (11.5-14.5) % ABG pCO2 84 H* (35-45) mmHg ABG pO2 63 L (83-108) mmHg ABG HCO3 47 H* (21-25) mmol/L ABG Total CO2 49 H (19-24) mmol/L ABG O2 Saturation 89.0 L (94-97) % Chloride (96-109) mmol/L Carbon Dioxide (21.6-31.8) mmol/L BUN (9.0-27.0) mg/dL BUN/Creatinine Ratio (12.00-20.00) Ratio Glucose (70-110) mg/dL POC Glucose (mg/dL) (75-99) mg/dL Assessment and Plan Assessment: Patient is a 65-year-old male transferred here from [place] due to severe hypoxemia. He has a history of COPD and hypertension but had not physician in many years. At [place] he underwent an extensive evaluation. His labs were unremarkable however CT abdomen and pelvis showed distended urinary bladder with bilateral hydronephrosis as well as possible right lower lobe pulmonary nodule. Patient is referred here for further evaluation. He underwent a CTA of the chest which was negative for pulmonary embolism and showed some atelectasis area did urology and pulmonology were consulted. Pulmonary recommended outpatient follow-up for formalized PFTs bronchodilators, and steroids. Echocardiogram was completed which showed an ejection fraction of 35-40% with severe left ventricular hypertrophy and elevated RVSP. He was started on Lasix, Cozaar, and spironolactone. He was not started on a beta kitty due to respiratory status and newly discovered systolic heart failure and exacerbation. He was seen by cardiology who recommended continuing with current care. Renal US on 01/22 without hydronephrosis. Acute exacerbation of COPD with acute on chronic hypoxic hypercapnic respiratory failure - Treated with bronchodilators and steroids -Pulmonary recommendations: Outpatient PFT, walk test, and sleep study - HRCT unremarkable for ILD -Wean O2 as able - procalcitonin negative and abx stopped -Acute CHF exacerbation with systolic cardiomyopathy: 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-40%, - Lasix, spironolactone - cozaar increased to elevated blood pressures - no BB due to new excerbation and COPD - Cardiology recs appreciated : Likely will need cath in the future, likely as outpatient due to breathing difficulties this admission - Telemetry - Strict I's and O's, daily weight Abnormal CT sinuses with possible tumor: ENT consulted for their visualization Hydronephrosis with bladder outlet obstruction -Likely due to lasix as no hydro on repeat US Prediabetes with Hyperglycemia - SSI - A1C 6.6 - Enlarged periaortic lymph nodes -Outpatient oncology evaluation -No obvious mass on CT abdomen and pelvis Elevated blood pressure without formal diagnosis of hypertension - lasix, spironolactone - follow BP Prolonged QT Obesity with BMI 43.9 - outpatient structured weight loss DVT prophylaxis: SCDs Discussed with: patient, nursing, and Dr. Hamilton at bedside Anticipated discharge: 2-[address]: home A total of 45 minutes was spent on the care of this complex patient more than 50% of the time was spent in counseling and care coordination.
[2021-01-25 16:15] LABS: Glucose,Whole Blood 129 mg/dL (75-99)
[2021-01-25] MEDS: carvediloL 6.25 MG TAB PO SCH ×2 (16:36→17:15)
[2021-01-25] MEDS: FUROSEMIDE 20 MG TAB PO SCH (17:15)
[2021-01-25] MEDS: ASPIRIN 81 MG PO SCH (17:15)
[2021-01-25 21:36] LABS: Glucose,Whole Blood 123 mg/dL (75-99)
[2021-01-25] MEDS: ATORVASTATIN 20 MG TAB PO SCH (21:54)
[2021-01-26 06:18] LABS: Basophils # (A) 0.1 k/uL (0-0.2); Basophils % (A) 1 %; Eosinophils # (A) 0.1 k/uL (0-0.7); Eosinophils % (A) 2 %; HGB 17.9 gm/dL (13.0-17.5); Hypochromasia Slight; Lymphocytes # (A) 1.4 k/uL (1.0-4.8); Lymphocytes % (A) 22 %; MCH 28.4 pg (25.0-35.0); MCHC 31.7 g/dL (31.0-37.0); MCV 89.4 fL (80.0-100.0); Mean Platelet Volume 9.3; Monocytes # (A) 0.8 k/uL (0-1.0); Monocytes % (A) 12 %; Neutrophils # (A) 4.1 k/uL (1.3-7.7); Neutrophils % (A) 61 %; Platelet Count 138 k/uL (150-450); RBC 6.29 m/uL (4.30-5.90); RDW 14.9 % (11.5-15.5); WBC 6.6 k/uL (3.8-10.6)
[2021-01-26 06:33] LABS: African American GFR (CKD) >90 (>60 ml/min/1.73 sqM); Blood Urea Nitrogen 38 mg/dL (9-20); Chloride 87 mmol/L (98-107); Glucose 111 mg/dL (74-99); Non-African American GFR(CKD) >90 (>60 ml/min/1.73 sqM); Potassium 3.9 mmol/L (3.5-5.1); Sodium 136 mmol/L (137-145)
[2021-01-26 06:39] LABS: Anion Gap 6 mmol/L
[2021-01-26 06:44] LABS: Carbon Dioxide 43 mmol/L (22-30)
[2021-01-26 06:46] LABS: HCT 56.3 % (39.0-53.0)
[2021-01-26 07:13] LABS: Glucose,Whole Blood 142 mg/dL (75-99)
[2021-01-26] MEDS: IPRATROPIUM-ALBUTEROL 3 ML NEB INHALATION SCH ×4 (08:09→21:52)
[2021-01-26] MEDS: HEPARIN SODIUM,PORCINE/PF 5,000 UNIT/0.5 ML SYRINGE SQ SCH ×2 (08:48→17:23)
[2021-01-26] MEDS: LOSARTAN 50 MG TAB PO SCH (08:49)
[2021-01-26] MEDS: SPIRONOLACTONE 25 MG TAB PO SCH (08:49)
[2021-01-26] MEDS: ASPIRIN 81 MG PO SCH (08:49)
[2021-01-26] MEDS: carvediloL 6.25 MG TAB PO SCH ×2 (08:49→17:23)
[2021-01-26] MEDS: FUROSEMIDE 20 MG TAB PO SCH ×2 (08:49→17:23)
[2021-01-26] MEDS: INSULIN ASPART (NovoLOG) 100 UNIT/ML VIAL SQ SCH ×3 (08:49→17:23)
[2021-01-26] MEDS: PSYLLIUM HUSK 100% 6 GM PACKET PO SCH (08:50)
--- NOTE | 2021-01-26 10:21 | P.PN ---
Subjective Progress Note Date: 01/26/21 Patient's was when I walked in the room. O2 saturation while he was sleeping was around 74%. He was easily arousable and was answering my questions appropriately. O2 sats improved to 85-88% when patient was aroused. Objective - Vital Signs Vital signs: Vital Signs Temp 97.6 F 01/26/21 07:00 Pulse 84 01/26/21 08:24 Resp 18 01/26/21 07:00 BP 151/90 01/26/21 07:00 Pulse Ox 91 L 01/26/21 10:02 Intake & Output 01/25/21 01/26/21 01/26/21 18:59 06:59 18:59 Intake Total 1050 Output Total 1150 Balance -100 Weight 101.8 kg Intake: Oral 1050 Output: Urine 1150 Other: Voiding Method Toilet Toilet Toilet # Voids 300 # Bowel Movements 1 - Exam General: The patient is awake and alert, in no distress Eye: there is normal conjunctiva bilaterally. Neck: The neck is supple, there is no JVD. Cardiovascular: Normal S1-S2, no S3-S4, no murmurs. Respiratory: Lungs clear to auscultation bilaterally Gastrointestinal: Abdomen is soft, nontender Musculoskeletal: There is no pedal edema. Neurological:. Speech is normal. Skin: Skin is warm and dry - Labs CBC & Chem 7: 01/26/21 05:52 01/26/21 05:52 Labs: Abnormal Lab Results - Last 24 Hours (Table) 01/25/21 01/25/21 01/25/21 Range/Units 07:23 07:23 11:27 RBC 6.51 H (4.40-5.60) X 10*6/uL Hgb 18.2 H (13.0-17.0) g/dL Hct 60.0 H* (39.6-50.0) % MCHC 30.3 L (32.0-37.0) g/dL RDW 16.7 H (11.5-14.5) % Plt Count (150-450) k/uL ABG pCO2 (35-45) mmHg ABG pO2 (83-108) mmHg ABG HCO3 (21-25) mmol/L ABG Total CO2 (19-24) mmol/L ABG O2 Saturation (94-97) % Sodium (137-145) mmol/L Chloride 89 L (96-109) mmol/L Carbon Dioxide 38.7 H (21.6-31.8) mmol/L BUN 30.0 H (9.0-27.0) mg/dL BUN/Creatinine Ratio 30.00 H (12.00-20.00) Ratio Glucose 117 H (70-110) mg/dL POC Glucose (mg/dL) 107 H (75-99) mg/dL 01/25/21 01/25/21 01/25/21 Range/Units 12:19 16:14 21:34 RBC (4.40-5.60) X 10*6/uL Hgb (13.0-17.0) g/dL Hct (39.6-50.0) % MCHC (32.0-37.0) g/dL RDW (11.5-14.5) % Plt Count (150-450) k/uL ABG pCO2 84 H* (35-45) mmHg ABG pO2 63 L (83-108) mmHg ABG HCO3 47 H* (21-25) mmol/L ABG Total CO2 49 H (19-24) mmol/L ABG O2 Saturation 89.0 L (94-97) % Sodium (137-145) mmol/L Chloride (96-109) mmol/L Carbon Dioxide (21.6-31.8) mmol/L BUN (9.0-27.0) mg/dL BUN/Creatinine Ratio (12.00-20.00) Ratio Glucose (70-110) mg/dL POC Glucose (mg/dL) 129 H 123 H (75-99) mg/dL 01/26/21 01/26/21 01/26/21 Range/Units 05:52 05:52 06:53 RBC 6.29 H (4.40-5.60) X 10*6/uL Hgb 17.9 H (13.0-17.0) g/dL Hct 56.3 H (39.6-50.0) % MCHC (32.0-37.0) g/dL RDW (11.5-14.5) % Plt Count 138 L (150-450) k/uL ABG pCO2 (35-45) mmHg ABG pO2 (83-108) mmHg ABG HCO3 (21-25) mmol/L ABG Total CO2 (19-24) mmol/L ABG O2 Saturation (94-97) % Sodium 136 L (137-145) mmol/L Chloride 87 L (96-109) mmol/L Carbon Dioxide 43 H* (21.6-31.8) mmol/L BUN 38 H (9.0-27.0) mg/dL BUN/Creatinine Ratio (12.00-20.00) Ratio Glucose 111 H (70-110) mg/dL POC Glucose (mg/dL) 142 H (75-99) mg/dL Assessment and Plan Assessment: Patient is a 65-year-old male transferred here from [place] due to severe hypoxemia. He has a history of COPD and hypertension but had not physician in many years. At [place] he underwent an extensive evaluation. His labs were unremarkable however CT abdomen and pelvis showed distended urinary bladder with bilateral hydronephrosis as well as possible right lower lobe pulmonary nodule. Patient is referred here for further evaluation. He underwent a CTA of the chest which was negative for pulmonary embolism and showed some atelectasis area did urology and pulmonology were consulted. Pulmonary recommended outpatient follow-up for formalized PFTs bronchodilators, and steroids. Echocardiogram was completed which showed an ejection fraction of 35-40% with severe left ventricular hypertrophy and elevated RVSP. He was started on Lasix, Cozaar, and spironolactone. He was not started on a beta kitty due to respiratory status and newly discovered systolic heart failure and exacerbation. He was seen by cardiology who recommended continuing with current care. Renal US on 01/22 without hydronephrosis. Acute exacerbation of COPD with acute on chronic hypoxic hypercapnic respiratory failure - I ordered a nocturnal continuous oximetry study for tonight. This was discussed with binder caser and respiratory therapy. Patient will definitely qualify for BiPAP prior to discharge. This will be set up tomorrow by binder caser. Unable to set up home care as patient has to follow-up with the PCP first. He would be referred to Dr. Jimenez - Treated with bronchodilators and IV steroids -I discontinued IV steroids in setting of heart failure exacerbation -Pulmonary recommendations: Outpatient PFT, walk test, and sleep study - HRCT unremarkable for ILD -Wean O2 as able currently on 5 L with O2 sats around 85% - procalcitonin negative and abx stopped -Acute CHF exacerbation with systolic cardiomyopathy: 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-40%, - Lasix, spironolactone - cozaar increased to elevated blood pressures - no BB due to new excerbation and COPD - Cardiology recs appreciated : Likely will need cath in the future, likely as outpatient due to breathing difficulties this admission - Telemetry - Strict I's and O's, daily weight Abnormal CT sinuses with possible tumor: ENT consulted for direct visualization. The recommended outpatient follow-up Hydronephrosis with bladder outlet obstruction -Likely due to lasix as no hydro on repeat US Prediabetes with Hyperglycemia - SSI - A1C 6.6 Enlarged periaortic lymph nodes -Outpatient oncology evaluation -No obvious mass on CT abdomen and pelvis Elevated blood pressure without formal diagnosis of hypertension - lasix, spironolactone - follow BP Prolonged QT Obesity with BMI 43.9 - outpatient structured weight loss DVT prophylaxis: SCDs Discussed with: patient, nursing, Anticipated discharge: Tomorrow Anticipated discharge place: home
--- NOTE | 2021-01-26 10:23 | P.PN ---
Progress Note - Text Progress Note Date: 01/26/21 Yesterday I had a prolonged discussion with the patient and his siblings at bedside regarding goals of care and CODE STATUS. I explained to the patient and his family about his chronic and worsening conditions. We discussed the necessity of having sleep study as an outpatient. He also discussed the option of obtaining a BiPAP machine to be used at nighttime at home and to wear oxygen during the day. Patient said that his willing to be cooperative and wear the mask as needed. We discussed the option of comfort care/hospice but patient was not interested in that at this time. He told me that he wants to live as long as possible. He also discussed CODE STATUS and the meaning of resuscitation including chest compression and or electric shock if needed as well as intubation. Patient wants to be a full code. His sister at bedside promised that she will help with his follow-up after discharge. I answered all of their questions to the satisfaction.
--- NOTE | 2021-01-26 10:24 | P.PN ---
Subjective Progress Note Date: 01/26/21 HISTORY OF PRESENT ILLNESS: This is a very pleasant 65-year-old gentleman who we are asked to see for further evaluation of congestive heart failure. The patient somewhat is a poor historian. He did not see a physician in long time. He does have history of hypertension. The patient presented to the emergency room complaining of increasing shortness of breath and also increasing in bilateral lower extent his edema for the last several weeks. He did not have any symptoms of chest pain or chest discomfort and no dizziness or lightheadedness and no feeling of heart racing or fluttering or syncope. The EKG showed sinus rhythm with prolonged QT interval. The troponin came in to be unremarkable. NT proBNP came in to be elevated. He underwent an echocardiogram and that revealed impaired LV function was EF around 35%. The patient was seen today. He continues to have shortness of breath but it seems to be slightly better. On examination he does have bilateral expiratory wheezing and rhonchi in both lung bases. The pressure continues to be not well- controlled and the dose of losartan is going to be increased 200 mg by mouth daily. He is on Aldactone and he continues to be on Lasix IV. We are holding beta kitty at this point because of the heart failure and also because of the chronic lung disease and wheezing. He still on high flow oxygen at this point. We'll continue following up with him. The patient need to have coronary angiogram either as an inpatient or as an outpatient obstructive CAD 01/25/2021 Patient examined this morning at the bedside. 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 He denies having previous lung or heart issues. He is a former smoker of 40 years. Patient denies chest pain or pressure. He denies shortness of breath, however he is requiring nasal cannula to maintain oxygen saturations greater than 92%. Blood pressure 156/96. 01/26/2021 Patient examined this morning. Patient is resting comfortably in bed. He denies chest pain or pressure. Denies shortness of breath. Patient remains on 15L NC. Blood pressure 151/90. Heart rate 70s. PHYSICAL EXAM: VITAL SIGNS: Reviewed. GENERAL: Well-developed in no acute distress. NECK: Supple. No JVD or thyromegaly LUNGS: Respirations even and unlabored. Lungs diminished. No rales noted. HEART: Regular rate and rhythm. S1 and S2 heard. EXTREMITIES: Normal range of motion. No clubbing or cyanosis. Peripheral pulses intact. Trace bilateral lower extremity edema ASSESSMENT: Acute hypoxic respiratory failure secondary to suspected obstructive sleep apnea, pickwickian syndrome and pulmonary arterial hypertension per pulmonary Acute systolic heart failure Cardiomyopathy of unknown etiology Hypertension PLAN: Wean oxygen as tolerated Continue current cardiac medications including Lasix, carvedilol, losartan, aspirin, atorvastatin, and Aldactone Accurate I&O Daily weights Monitor kidney function Patient will require coronary angiogram when he is medically stable Further recommendations pending patient course Nurse practitioner note has been reviewed by physician. Signing provider agrees with the documented findings, assessment, and plan of care. Objective - Vital Signs Vital signs: Vital Signs Temp 97.6 F 01/26/21 07:00 Pulse 84 01/26/21 08:24 Resp 18 01/26/21 07:00 BP 151/90 01/26/21 07:00 Pulse Ox 91 L 01/26/21 10:02 Intake & Output 01/25/21 01/26/21 01/26/21 18:59 06:59 18:59 Intake Total 1050 Output Total 1150 Balance -100 Weight 101.8 kg Intake: Oral 1050 Output: Urine 1150 Other: Voiding Method Toilet Toilet Toilet # Voids 300 # Bowel Movements 1 - Labs CBC & Chem 7: 01/26/21 05:52 01/26/21 05:52 Labs: Abnormal Lab Results - Last 24 Hours (Table) 01/25/21 01/25/21 01/25/21 Range/Units 07:23 07:23 11:27 RBC 6.51 H (4.40-5.60) X 10*6/uL Hgb 18.2 H (13.0-17.0) g/dL Hct 60.0 H* (39.6-50.0) % MCHC 30.3 L (32.0-37.0) g/dL RDW 16.7 H (11.5-14.5) % Plt Count (150-450) k/uL ABG pCO2 (35-45) mmHg ABG pO2 (83-108) mmHg ABG HCO3 (21-25) mmol/L ABG Total CO2 (19-24) mmol/L ABG O2 Saturation (94-97) % Sodium (137-145) mmol/L Chloride 89 L (96-109) mmol/L Carbon Dioxide 38.7 H (21.6-31.8) mmol/L BUN 30.0 H (9.0-27.0) mg/dL BUN/Creatinine Ratio 30.00 H (12.00-20.00) Ratio Glucose 117 H (70-110) mg/dL POC Glucose (mg/dL) 107 H (75-99) mg/dL 01/25/21 01/25/21 01/25/21 Range/Units 12:19 16:14 21:34 RBC (4.40-5.60) X 10*6/uL Hgb (13.0-17.0) g/dL Hct (39.6-50.0) % MCHC (32.0-37.0) g/dL RDW (11.5-14.5) % Plt Count (150-450) k/uL ABG pCO2 84 H* (35-45) mmHg ABG pO2 63 L (83-108) mmHg ABG HCO3 47 H* (21-25) mmol/L ABG Total CO2 49 H (19-24) mmol/L ABG O2 Saturation 89.0 L (94-97) % Sodium (137-145) mmol/L Chloride (96-109) mmol/L Carbon Dioxide (21.6-31.8) mmol/L BUN (9.0-27.0) mg/dL BUN/Creatinine Ratio (12.00-20.00) Ratio Glucose (70-110) mg/dL POC Glucose (mg/dL) 129 H 123 H (75-99) mg/dL 01/26/21 01/26/21 01/26/21 Range/Units 05:52 05:52 06:53 RBC 6.29 H (4.40-5.60) X 10*6/uL Hgb 17.9 H (13.0-17.0) g/dL Hct 56.3 H (39.6-50.0) % MCHC (32.0-37.0) g/dL RDW (11.5-14.5) % Plt Count 138 L (150-450) k/uL ABG pCO2 (35-45) mmHg ABG pO2 (83-108) mmHg ABG HCO3 (21-25) mmol/L ABG Total CO2 (19-24) mmol/L ABG O2 Saturation (94-97) % Sodium 136 L (137-145) mmol/L Chloride 87 L (96-109) mmol/L Carbon Dioxide 43 H* (21.6-31.8) mmol/L BUN 38 H (9.0-27.0) mg/dL BUN/Creatinine Ratio (12.00-20.00) Ratio Glucose 111 H (70-110) mg/dL POC Glucose (mg/dL) 142 H (75-99) mg/dL
[2021-01-26 11:37] LABS: Glucose,Whole Blood 125 mg/dL (75-99)
--- NOTE | 2021-01-26 12:44 | P.PN ---
Subjective Progress Note Date: 01/26/21 Acute on chronic hypoxic and hypercapnic respiratory failure, interstitial lung disease/pulmonary fibrosis, COPD 65-year-old obese male, who apparently does not see a family doctor has not seen a doctor in years, presents with the emergency room with complaints of shortness of breath, lower extremity edema, and increasing abdominal girth. The patient was noted to have significant clubbing of the fingers and toes. The patient doesn't smoke. He apparently has been smoking for a number of years although he quit for a period time as well. The patient complains of increasing shortness of breath, increasing abdominal girth, and lower extremities edema. His CAT scan did not reveal a pulmonary embolism. His examination was consistent with interstitial lung disease/pulmonary fibrosis. I suspect that likely to be his primary diagnosis. In addition, the patient likely also has secondary pulmonary hypertension, and cor pulmonale. He is currently on 15 L high flow oxygen. He appears to be mildly tachypnea. He keeps on dozing off to sleep. His saturations are in the low 90s. Temperature 97.6, heart rate 86, respiratory rate 22, and blood pressure 189/103. Currently admitted includes a white count 7.4, hemoglobin 17.7, hematocrit 56, and platelet count 147,000. PT, INR, and PTT are normal. Blood gases show a well compensated hypercapnea, with a PaO2 of 76. Sodium 138, potassium 4.1, chlorides 98, CO2 32, anion gap 8, BUN 16, and creatinine 0.82. Coronavirus testing is negative. On 01/22/2021 patient seen in follow-up on medical surgical floor, he remains on high flow oxygen, currently at 10 L, his pulse ox is 98%, he is in a chair, awake and alert, oriented 3, has a slightly congested cough, but overall breathing easier, she was started on Lasix, 40 mg every 12 hours, his echocardiogram did show moderate concentric LVH, moderately impaired LV function with an EF of 35-40%, mild aortic stenosis and regurgitation, mild MR, mild TR, and moderately severe pulmonary hypertension with right-sided pressure of 48.3 mmHg. Patient is diuresing, and he has produced 3.1 L of urine, and he is in - 1.8 the fluid balance over the last 24 hours. Cardiology consultation was re quested and pending at this time. No complaints of chest pain. Patient's proBNP was elevated at 1650, Propulsid level was negative at 0.03, COVID-19 test was negative. Progress note dated 01/23/2021. Currently, the patient remains on high flow nasal O2. Saturations are reasonable. The patient has a poor understanding of this condition. He wants to be discharged home. I told him we cannot provide the amount of oxygen that he is currently on, at home. In my opinion, the patient has pulmonary fibrosis. The patient has clubbing of the fingers and toes. I believe the patient has had long-standing chronic lung disease. Current vital signs show temperature 98.1, heart rate 86, respiratory rate 20, blood pressure 151/95, and his saturations between 90 and 91% on 15 L high flow nasal cannula. Laboratory data from yesterday shows a white count of 9.56, hemoglobin 17.5, hematocrit 58.1, and a normal platelet count. On his electrolyte profile, his carbon dioxide concentration is 39. The patient is seen today 01/24/2021 in follow-up on the regular medical floor. He is currently sitting up in a chair at the bedside. Awake and alert in no acute distress. He is still requiring 15 L high flow nasal cannula to maintain O2 saturations in the low 90s. He is afebrile. Hemodynamically stable. Blood glucose 124. He remains on IV Lasix 40 mg every 12 hours, bronchodilators. Unable to titrate down the FiO2. High-resolution computed tomography scan performed today reveals bands of scarring in the lower lobes was some associated mild bronchiectasis. Additional volume loss/consolidation forming portions of his superior segment left lower lobe and medial basilar left lower lobe. Findings probably sequela of prior infections. No specific findings of ILD. There was mild cardiomegaly with pulmonary arterial hypertension. 01/25/2021, I'm seeing the patient for a follow-up. Very much sleepy. Fatigued and tired at all times. He is snoring all the time even while awake and talking to me. He has significant crowding of the posterior pharynx and Mallampati class IV. At the same time, the patient is somnolent, sleepy, has chronic CO2 retention, he has compensated running hypoxic and hypercapnic respiratory failure. His HRCT showed no evidence of any interstitial lung disease. His echo cardiac exam showed a moderate degree of pulmonary hypertension. This is a case of severe obstructive sleep apnea//obesity hypoventilation syndrome along with a component of COPD. The patient was taken off the IV diuretics and currently is on oral diuretics. COVID-19 testing is been negative. No chest pain. Less short of breath. 01/26/2021, I'm seeing this patient for a follow-up. The patient is still sleepy. Somnolent. He can fall asleep on and off during the day and sometimes even want having conversation with other individuals. Overall, he seems to be slightly more alert compared to yesterday. Nevertheless, overall he is still somnolent and sleepy. His blood gases showed chronic hypercapnic respiratory failure with CO2 retention, well compensated. HRCT was negative for any form of interstitial lung disease. The echocardiogram was positive for hypertension. The patient's secondary erythrocytosis consistent with chronic hypoxemic respiratory failure. Meanwhile, one on meanwhile, while on 5 L of oxygen patient's pulse ox is around 87% while awake. She desaturated the ventricular lower level during sleep.She does have chronic metabolic alkalosis secondary to chronic hypercapnic respiratory failure. His blood gases. The blood gases was done and FiO2 of 40% showed a pH of 7.36 with a pCO2 of 84 and pO2 of 63. Objective - Vital Signs Vital signs: Vital Signs Temp 97.6 F 01/26/21 07:00 Pulse 85 01/26/21 11:59 Resp 18 01/26/21 07:00 BP 151/90 01/26/21 07:00 Pulse Ox 91 L 01/26/21 10:02 Intake & Output 01/25/21 01/26/21 01/26/21 18:59 06:59 18:59 Intake Total 1050 Output Total 1150 Balance -100 Weight 101.8 kg Intake: Oral 1050 Output: Urine 1150 Other: Voiding Method Toilet Toilet Toilet # Voids 300 # Bowel Movements 1 - Exam GENERAL EXAM: Alert, morbidly obese 65-year-old gentleman, on 5 L high flow nasal cannula, comfortable in no apparent distress. HEAD: Normocephalic. EYES: Normal reaction of pupils, equal size. NOSE: Clear with pink turbinates. THROAT: No erythema or exudates. Patient has significant crowding of the posterior oropharynx and a Mallampati class IV. NECK: No masses, no JVD. CHEST: No chest wall deformity. LUNGS: Equal air entry with no crackles, wheeze, rhonchi or dullness. CVS: S1 and S2 normal with no audible murmur, regular rhythm. ABDOMEN: No hepatosplenomegaly, normal bowel sounds, no guarding or rigidity. SPINE: No scoliosis or deformity SKIN: No rashes CENTRAL NERVOUS SYSTEM: No focal deficits, tone is normal in all 4 extremities. EXTREMITIES: There is no peripheral edema. Positive for clubbing, - Labs CBC & Chem 7: 01/26/21 05:52 01/26/21 05:52 Labs: Abnormal Lab Results - Last 24 Hours (Table) 01/25/21 01/25/21 01/25/21 Range/Units 12:19 16:14 21:34 RBC (4.30-5.90) m/uL Hgb (13.0-17.5) gm/dL Hct (39.0-53.0) % Plt Count (150-450) k/uL ABG pCO2 84 H* (35-45) mmHg ABG pO2 63 L (83-108) mmHg ABG HCO3 47 H* (21-25) mmol/L ABG Total CO2 49 H (19-24) mmol/L ABG O2 Saturation 89.0 L (94-97) % Sodium (137-145) mmol/L Chloride (98-107) mmol/L Carbon Dioxide (22-30) mmol/L BUN (9-20) mg/dL Glucose (74-99) mg/dL POC Glucose (mg/dL) 129 H 123 H (75-99) mg/dL 01/26/21 01/26/21 01/26/21 Range/Units 05:52 05:52 06:53 RBC 6.29 H (4.30-5.90) m/uL Hgb 17.9 H (13.0-17.5) gm/dL Hct 56.3 H (39.0-53.0) % Plt Count 138 L (150-450) k/uL ABG pCO2 (35-45) mmHg ABG pO2 (83-108) mmHg ABG HCO3 (21-25) mmol/L ABG Total CO2 (19-24) mmol/L ABG O2 Saturation (94-97) % Sodium 136 L (137-145) mmol/L Chloride 87 L (98-107) mmol/L Carbon Dioxide 43 H* (22-30) mmol/L BUN 38 H (9-20) mg/dL Glucose 111 H (74-99) mg/dL POC Glucose (mg/dL) 142 H (75-99) mg/dL 01/26/21 Range/Units 11:35 RBC (4.30-5.90) m/uL Hgb (13.0-17.5) gm/dL Hct (39.0-53.0) % Plt Count (150-450) k/uL ABG pCO2 (35-45) mmHg ABG pO2 (83-108) mmHg ABG HCO3 (21-25) mmol/L ABG Total CO2 (19-24) mmol/L ABG O2 Saturation (94-97) % Sodium (137-145) mmol/L Chloride (98-107) mmol/L Carbon Dioxide (22-30) mmol/L BUN (9-20) mg/dL Glucose (74-99) mg/dL POC Glucose (mg/dL) 125 H (75-99) mg/dL Assessment and Plan Plan: 1 Acute on chronic hypoxemic/hypercapnic respiratory failure secondary to suspected obstructive sleep apnea, pickwickian syndrome and pulmonary arterial hypertension 2 Probable secondary pulmonary hypertension and cor pulmonale. 3 Morbid obesity. 4 Suspect sleep apnea syndrome. 5 Suspect Pickwickian syndrome. 6 Polycythemia, likely secondary to chronic lung disease. 7 No evidence of pulmonary embolism on CT angiogram. 8 Prior history of tobacco use. 9 Significant clubbing 10 Medical noncompliance. 11 CHF with an ejection fraction of 30-35% consistent with chronic systolic heart failure, with a possible acute exacerbation at time of admission Plan: This case of severe symptomatic obstructive sleep apnea with chronic hypoxic and hypercapnic respiratory failure with obvious signs of obesity hypoventilation syndrome contributing to his condition. He does have secondary erythrocytosis. He does have secondary pulmonary hypertension. Does have active symptoms of sleep breathing disorder. In addition, he has a component of COPD and cardiomyopathy with an ejection fraction of 30-35%. His blood gases showing chronic compensated respiratory acidosis The best approach of treatment for this patient should be an in lab polysomnogram to establish the diagnosis and its severity and following that in lab CPAP/BiPAP titration along with oxygen titration to continue until the obstr uctive respiratory events are well and terminated and the patient's pulse ox is brought up above 90%. Obviously setting arbitrary pressures through outpatient regimens of alternative devices may not be successful due to issues related to a pressure setting, oxygen flow and mask interface. Not to mention, the fact that the patient also has CHF and he may develop central sleep apnea events while b eing on treatment. As mentioned earlier, this is a complex case specially the patient has chronic i ssues with sinus disease and plugging of the posterior meatal complex on the left and he needs probably to go through that his pressure settings of various mask interface to establish adequate tolerability compliance and clinical response. As such, putting all this things together, and in lab CPAP/BiPAP titration is what I recommend. Following that I'll make sure that the patient demonstrates adequate compliance that will allow her maintain treatment. Based on my assessment, I think he would end up on a high-pressure BiPAP setting in addition to oxygen flow with a full facemask. Alternative approaches such as outpatient devices with arbitrary pressures will fail for the above-mentioned r easons. I am going to contact the sleep center and expedite his sleep study and make it possible as soon as his discharge from the hospital.
[2021-01-26 16:33] LABS: Glucose,Whole Blood 141 mg/dL (75-99)
[2021-01-26] MEDS: ATORVASTATIN 20 MG TAB PO SCH (19:45)
[2021-01-27] MEDS: HEPARIN SODIUM,PORCINE/PF 5,000 UNIT/0.5 ML SYRINGE SQ SCH ×3 (00:48→17:25)
[2021-01-27] MEDS: ACETAMINOPHEN TAB 325 MG TAB PO PRN (03:49)
[2021-01-27] MEDS: carvediloL 6.25 MG TAB PO SCH (07:47)
[2021-01-27] MEDS: ASPIRIN 81 MG PO SCH (07:48)
[2021-01-27] MEDS: SPIRONOLACTONE 25 MG TAB PO SCH (07:48)
[2021-01-27] MEDS: PSYLLIUM HUSK 100% 6 GM PACKET PO SCH (07:48)
[2021-01-27] MEDS: LOSARTAN 50 MG TAB PO SCH (07:48)
[2021-01-27] MEDS: FUROSEMIDE 20 MG TAB PO SCH (07:48)
[2021-01-27] MEDS: IPRATROPIUM-ALBUTEROL 3 ML NEB INHALATION SCH ×3 (08:32→16:08)
[2021-01-27 08:35] VITALS: RESP 20
[2021-01-27] MEDS ORDERED: acetaZOLAMIDE 250 MG TAB PO SCH (10:15)
--- NOTE | 2021-01-27 10:44 | P.PN ---
Subjective Progress Note Date: 01/27/21 HISTORY OF PRESENT ILLNESS: This is a very pleasant 65-year-old gentleman who we are asked to see for further evaluation of congestive heart failure. The patient somewhat is a poor historian. He did not see a physician in long time. He does have history of hypertension. The patient presented to the emergency room complaining of increasing shortness of breath and also increasing in bilateral lower extent his edema for the last several weeks. He did not have any symptoms of chest pain or chest discomfort and no dizziness or lightheadedness and no feeling of heart racing or fluttering or syncope. The EKG showed sinus rhythm with prolonged QT interval. The troponin came in to be unremarkable. NT proBNP came in to be elevated. He underwent an echocardiogram and that revealed impaired LV function was EF around 35%. The patient was seen today. He continues to have shortness of breath but it seems to be slightly better. On examination he does have bilateral expiratory wheezing and rhonchi in both lung bases. The pressure continues to be not well- controlled and the dose of losartan is going to be increased 200 mg by mouth daily. He is on Aldactone and he continues to be on Lasix IV. We are holding beta kitty at this point because of the heart failure and also because of the chronic lung disease and wheezing. He still on high flow oxygen at this point. We'll continue following up with him. The patient need to have coronary angiogram either as an inpatient or as an outpatient obstructive CAD 01/25/2021 Patient examined this morning at the bedside. 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 He denies having previous lung or heart issues. He is a former smoker of 40 years. Patient denies chest pain or pressure. He denies shortness of breath, however he is requiring nasal cannula to maintain oxygen saturations greater than 92%. Blood pressure 156/96. 01/26/2021 Patient examined this morning. Patient is resting comfortably in bed. He denies chest pain or pressure. Denies shortness of breath. Patient remains on 15L NC. Blood pressure 151/90. Heart rate 70s. 01/27/2021 Patient examined this morning. Patient is sitting up in the chair. He denies chest pain or pressure. He denies shortness of breath. He remains on nasal cannula to maintain oxygen saturations greater than 92%. Blood pressure 123/91. Heart rate is in the 80s. PHYSICAL EXAM: VITAL SIGNS: Reviewed. GENERAL: Well-developed in no acute distress. NECK: Supple. No JVD or thyromegaly LUNGS: Respirations even and unlabored. Lungs diminished with scattered rhonchi. HEART: Regular rate and rhythm. S1 and S2 heard. EXTREMITIES: Normal range of motion. No clubbing or cyanosis. Peripheral pulses intact. Trace bilateral lower extremity edema ASSESSMENT: Acute hypoxic respiratory failure secondary to suspected obstructive sleep apnea, pickwickian syndrome and pulmonary arterial hypertension per pulmonary Acute systolic heart failure Cardiomyopathy of unknown etiology Hypertension PLAN: Wean oxygen as tolerated Continue current cardiac medications including Lasix, carvedilol, losartan, aspirin, atorvastatin, and Aldactone Accurate I&O Daily weights Monitor kidney function Patient states he is being discharged home today. Agreeable to discharge from a cardiac standpoint. He is to follow up outpatient with Dr. Hamilton. He will require outpatient coronary angiogram. Further recommendations pending patient course Nurse practitioner note has been reviewed by physician. Signing provider agrees with the documented findings, assessment, and plan of care. Objective - Vital Signs Vital signs: Vital Signs Temp 97.7 F 01/27/21 08:00 Pulse 78 01/27/21 08:30 Resp 20 01/27/21 08:00 BP 123/91 01/27/21 08:00 Pulse Ox 90 L 01/27/21 08:15 Intake & Output 01/26/21 01/27/21 01/27/21 18:59 06:59 18:59 Intake Total 480 Output Total 99 1300 Balance -99 -820 Weight 102.2 kg Intake: Other 480 Output: Urine 1300 Post Void Residual 99 Other: Voiding Method Toilet Toilet # Voids 3 0 - Labs CBC & Chem 7: 01/26/21 05:52 01/26/21 05:52 Labs: Abnormal Lab Results - Last 24 Hours (Table) 01/26/21 01/26/21 Range/Units 11:35 16:31 POC Glucose (mg/dL) 125 H 141 H (75-99) mg/dL
--- NOTE | 2021-01-27 13:24 | P.PN ---
Subjective Progress Note Date: 01/27/21 Acute on chronic hypoxic and hypercapnic respiratory failure, interstitial lung disease/pulmonary fibrosis, COPD 65-year-old obese male, who apparently does not see a family doctor has not seen a doctor in years, presents with the emergency room with complaints of shortness of breath, lower extremity edema, and increasing abdominal girth. The patient was noted to have significant clubbing of the fingers and toes. The patient doesn't smoke. He apparently has been smoking for a number of years although he quit for a period time as well. The patient complains of increasing shortness of breath, increasing abdominal girth, and lower extremities edema. His CAT scan did not reveal a pulmonary embolism. His examination was consistent with interstitial lung disease/pulmonary fibrosis. I suspect that likely to be his primary diagnosis. In addition, the patient likely also has secondary pulmonary hypertension, and cor pulmonale. He is currently on 15 L high flow oxygen. He appears to be mildly tachypnea. He keeps on dozing off to sleep. His saturations are in the low 90s. Temperature 97.6, heart rate 86, respiratory rate 22, and blood pressure 189/103. Currently admitted includes a white count 7.4, hemoglobin 17.7, hematocrit 56, and platelet count 147,000. PT, INR, and PTT are normal. Blood gases show a well compensated hypercapnea, with a PaO2 of 76. Sodium 138, potassium 4.1, chlorides 98, CO2 32, anion gap 8, BUN 16, and creatinine 0.82. Coronavirus testing is negative. On 01/22/2021 patient seen in follow-up on medical surgical floor, he remains on high flow oxygen, currently at 10 L, his pulse ox is 98%, he is in a chair, awake and alert, oriented 3, has a slightly congested cough, but overall breathing easier, she was started on Lasix, 40 mg every 12 hours, his echocardiogram did show moderate concentric LVH, moderately impaired LV function with an EF of 35-40%, mild aortic stenosis and regurgitation, mild MR, mild TR, and moderately severe pulmonary hypertension with right-sided pressure of 48.3 mmHg. Patient is diuresing, and he has produced 3.1 L of urine, and he is in - 1.8 the fluid balance over the last 24 hours. Cardiology consultation was re quested and pending at this time. No complaints of chest pain. Patient's proBNP was elevated at 1650, Propulsid level was negative at 0.03, COVID-19 test was negative. Progress note dated 01/23/2021. Currently, the patient remains on high flow nasal O2. Saturations are reasonable. The patient has a poor understanding of this condition. He wants to be discharged home. I told him we cannot provide the amount of oxygen that he is currently on, at home. In my opinion, the patient has pulmonary fibrosis. The patient has clubbing of the fingers and toes. I believe the patient has had long-standing chronic lung disease. Current vital signs show temperature 98.1, heart rate 86, respiratory rate 20, blood pressure 151/95, and his saturations between 90 and 91% on 15 L high flow nasal cannula. Laboratory data from yesterday shows a white count of 9.56, hemoglobin 17.5, hematocrit 58.1, and a normal platelet count. On his electrolyte profile, his carbon dioxide concentration is 39. The patient is seen today 01/24/2021 in follow-up on the regular medical floor. He is currently sitting up in a chair at the bedside. Awake and alert in no acute distress. He is still requiring 15 L high flow nasal cannula to maintain O2 saturations in the low 90s. He is afebrile. Hemodynamically stable. Blood glucose 124. He remains on IV Lasix 40 mg every 12 hours, bronchodilators. Unable to titrate down the FiO2. High-resolution computed tomography scan performed today reveals bands of scarring in the lower lobes was some associated mild bronchiectasis. Additional volume loss/consolidation forming portions of his superior segment left lower lobe and medial basilar left lower lobe. Findings probably sequela of prior infections. No specific findings of ILD. There was mild cardiomegaly with pulmonary arterial hypertension. 01/25/2021, I'm seeing the patient for a follow-up. Very much sleepy. Fatigued and tired at all times. He is snoring all the time even while awake and talking to me. He has significant crowding of the posterior pharynx and Mallampati class IV. At the same time, the patient is somnolent, sleepy, has chronic CO2 retention, he has compensated running hypoxic and hypercapnic respiratory failure. His HRCT showed no evidence of any interstitial lung disease. His echo cardiac exam showed a moderate degree of pulmonary hypertension. This is a case of severe obstructive sleep apnea//obesity hypoventilation syndrome along with a component of COPD. The patient was taken off the IV diuretics and currently is on oral diuretics. COVID-19 testing is been negative. No chest pain. Less short of breath. 01/26/2021, I'm seeing this patient for a follow-up. The patient is still sleepy. Somnolent. He can fall asleep on and off during the day and sometimes even want having conversation with other individuals. Overall, he seems to be slightly more alert compared to yesterday. Nevertheless, overall he is still somnolent and sleepy. His blood gases showed chronic hypercapnic respiratory failure with CO2 retention, well compensated. HRCT was negative for any form of interstitial lung disease. The echocardiogram was positive for hypertension. The patient's secondary erythrocytosis consistent with chronic hypoxemic respiratory failure. Meanwhile, one on meanwhile, while on 5 L of oxygen patient's pulse ox is around 87% while awake. She desaturated the ventricular lower level during sleep.She does have chronic metabolic alkalosis secondary to chronic hypercapnic respiratory failure. His blood gases. The blood gases was done and FiO2 of 40% showed a pH of 7.36 with a pCO2 of 84 and pO2 of 63. 2020 on seeing the patient for a follow-up. He is currently on 4 L about 2 by nasal cannula. Doing well. He is quite awake and alert. No chest pain. No significant respiratory difficulties. He is awaiting an ENT evaluation 9 that his CAT scan of the sinuses showed chronic occlusion of the ostiomeatal complex.. He is a mouth breather. He has the typical features are typical of obstructive sleep apnea/obesity , along with a component of COPD. It's for this patient otherwise screening polysomnogram today, possibly a split-night study knowing that he will end up being a severe case and he will need a immediate presentation with CPAP/BiPAP along with oxygen to maintain a saturation above 90%. Objective - Vital Signs Vital signs: Vital Signs Temp 97.7 F 01/27/21 08:00 Pulse 73 01/27/21 12:25 Resp 20 01/27/21 08:00 BP 123/91 01/27/21 08:00 Pulse Ox 90 L 01/27/21 10:50 Intake & Output 01/26/21 01/27/21 01/27/21 18:59 06:59 18:59 Intake Total 480 Output Total 99 1300 Balance -99 -820 Weight 102.2 kg Intake: Other 480 Output: Urine 1300 Post Void Residual 99 Other: Voiding Method Toilet Toilet # Voids 3 0 - Exam GENERAL EXAM: Alert, morbidly obese 65-year-old gentleman, on 5 L high flow nasal cannula, comfortable in no apparent distress. HEAD: Normocephalic. EYES: Normal reaction of pupils, equal size. NOSE: Clear with pink turbinates. THROAT: No erythema or exudates. Patient has significant crowding of the posterior oropharynx and a Mallampati class IV. NECK: No masses, no JVD. CHEST: No chest wall deformity. LUNGS: Equal air entry with no crackles, wheeze, rhonchi or dullness. CVS: S1 and S2 normal with no audible murmur, regular rhythm. ABDOMEN: No hepatosplenomegaly, normal bowel sounds, no guarding or rigidity. SPINE: No scoliosis or deformity SKIN: No rashes CENTRAL NERVOUS SYSTEM: No focal deficits, tone is normal in all 4 extremities. EXTREMITIES: There is no peripheral edema. Positive for clubbing, - Labs CBC & Chem 7: 01/26/21 05:52 01/26/21 05:52 Labs: Abnormal Lab Results - Last 24 Hours (Table) 01/26/21 Range/Units 16:31 POC Glucose (mg/dL) 141 H (75-99) mg/dL Assessment and Plan Plan: 1 Acute on chronic hypoxemic/hypercapnic respiratory failure secondary to suspected obstructive sleep apnea, pickwickian syndrome and pulmonary arterial hypertension 2 Probable secondary pulmonary hypertension and cor pulmonale. 3 Morbid obesity. 4 Suspect sleep apnea syndrome. 5 Suspect Pickwickian syndrome. 6 Polycythemia, likely secondary to chronic lung disease. 7 No evidence of pulmonary embolism on CT angiogram. 8 Prior history of tobacco use. 9 Significant clubbing 10 Medical noncompliance. 11 CHF with an ejection fraction of 30-35% consistent with chronic systolic heart failure, with a possible acute exacerbation at time of admission Plan: The plan is to proceed with a screening polysomnogram post discharge. The patient is scheduled to have a sleep study today. We'll continue to follow in the office and make further recommendations regarding his treatment. The patient was given Diamox for short period of time to improve his acid-base status. Discussed the case with Dr. Larson from internal medicine.
--- NOTE | 2021-01-27 14:12 | P.DS ---
Providers Date of admission: 01/20/21 22:44 Expected date of discharge: 01/27/21 Attending physician: Caesar Matthews MD Consults: 01/21/21 02:53 Consult Physician Routine Consulting Provider: Long Rogers Consult Reason/Comments: Hydroureter + hydronephrosis Do you want consulting provider notified?: Yes Consult Physician Urgent Consulting Provider: Simba Interiano Consult Reason/Comments: COPD Do you want consulting provider notified?: Yes 01/21/21 15:25 Consult Physician Routine Consulting Provider: Fco Hamilton Consult Reason/Comments: new systolic CHF Do you want consulting provider notified?: Yes 01/25/21 15:31 Consult Physician Routine Consulting Provider: Mark Martinez Consult Reason/Comments: abnormal CT Do you want consulting provider notified?: Yes Primary care physician: Stated None Hospital Course: Discharge Diagnosis: Acute exacerbation of systolic congestive heart failure 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- 40%, newly discovered Probable obstructive sleep apnea with secondary pulmonary hypertension Acute exacerbation of COPD Acute on probable hypoxic hypercapnic respiratory failure Left maxillary sinus disease Left hydronephrosis, resolved Prediabetes Enlarged periaortic lymph nodes Elevated blood pressure without formal diagnosis of hypertension Obesity with BMI 43.9 on admission Prolonged QT Polycythemia Suspected pickwickian syndrome History of tobacco abuse Has not seen a doctor in many years Hospital Course: Patient is a 65-year-old male transferred here from [place] due to severe hypoxemia. He has a history of COPD and hypertension but had not physician in many years. At [place] he underwent an extensive evaluation. His labs were unremarkable however CT abdomen and pelvis showed distended urinary bladder with bilateral hydronephrosis as well as possible right lower lobe pulmonary nodule. Patient is referred here for further evaluation. He underwent a CTA of the chest which was negative for pulmonary embolism and showed some atelectasis area did urology and pulmonology were consulted. Pulmonary recommended outpatient follow-up for formalized PFTs bronchodilators, and steroids. Echocardiogram was completed which showed an ejection fraction of 35-40% with severe left ventricular hypertrophy and elevated RVSP. He was started on Lasix, Cozaar, and spironolactone. He was not started on a beta kitty due to respiratory status and newly discovered systolic heart failure and exacerbation. He was seen by cardiology who recommended continuing with current care. Renal US on 01/22 without hydronephrosis. His high-resolution CT lung demonstrated volume loss with consolidation in the left upper lobe, mild cardiomegaly with pulmonary arterial hypertension. CT sinuses showed chronic left maxillary sinus disease with possible mass and advised ENT referral. ENT was contacted and recommended outpatient follow-up. His fluid status was optimized. Arranement were made for outpatient sleep study. He was educated on the importance of following up with physician, following his diet, and wearing his oxygen. He expressed that he does not plan on taking medications rest of his life and he is unsure whether or not he will wear a mask at night. Follow-up: Patient will take Diamox for 7 days, he will start Lasix and Aldactone on 02/04. He will follow up with Dr. Interiano next week, he will follow the sleep center [facility]. He is being discharged home on home oxygen. He'll need to follow with Dr. Hamilton for his heart failure and Dr. Perkins for his probable left maxillary sinus disease. He has elected to follow-up with Dr. Chow. Recommend repeat basic metabolic profile in 7 days. Ideally patient will have home health however this is unable to be arranged and he'll he decides on a PCP. Patient seen and examined at bedside. No chest pain, breathing is at baseline, discussed with his sister the needed for outpatient f/u she understands. Vital signs reviewed and stable. General: non toxic, no distress, appears at stated age Derm: warm, dry Head: atraumatic, normocephalic, symmetric Eyes: EOMI, no lid lag, anicteric sclera Mouth: no lip lesion, mucus membranes moist Cardiovascular: S1S2 reg, no murmur, positive posterior tibial pulse bilateral, Lungs: Crackels bilateral bases, no rhonchi, no rales , no accessory muscle use Abdominal: soft, nontender to palpation, no guarding, no appreciable organomegaly Ext: no gross muscle atrophy, 3+ edema, no contractures Neuro: CN II-XI grossly intact, no focal neuro deficits Psych: Alert, oriented, appropriate affect A total of 35 minutes of time were spent preparing this complex discharge summary . Patient Condition at Discharge: Stable Plan - Discharge Summary Discharge Rx Participant: No New Discharge Prescriptions: New Furosemide [Lasix] 40 mg PO BID #60 tablet Ipratropium-Albuterol Nebulize [Duoneb 0.5 mg-3 mg/3 ml Soln] 1 neb INHALATION QID #120 neb Spironolactone [Aldactone] 12.5 mg PO DAILY #30 tab Aspirin 81 mg PO DAILY chew carvediloL [Coreg] 6.25 mg PO BID-W/MEALS #60 tab Losartan Potassium [Cozaar] 100 mg PO DAILY #30 tab acetaZOLAMIDE [Diamox] 250 mg PO DAILY #7 tab Fluticasone Nasal [place] [Flonase Nasal [place]] 2 spray EA NOSTRIL DAILY PRN #0 spr PRN Reason: Allergy Symptoms Atorvastatin [Lipitor] 20 mg PO HS #30 tab Discharge Medication List Aspirin 81 mg PO DAILY chew 01/27/21 [Rx] Atorvastatin [Lipitor] 20 mg PO HS #30 tab 01/27/21 [Rx] Fluticasone Nasal [place] [Flonase Nasal [place]] 2 spray EA NOSTRIL DAILY PRN #0 spr 01/27/21 [Rx] Furosemide [Lasix] 40 mg PO BID #60 tablet 01/27/21 [Rx] Ipratropium-Albuterol Nebulize [Duoneb 0.5 mg-3 mg/3 ml Soln] 1 neb INHALATION QID #120 neb 01/27/21 [Rx] Losartan Potassium [Cozaar] 100 mg PO DAILY #30 tab 01/27/21 [Rx] Spironolactone [Aldactone] 12.5 mg PO DAILY #30 tab 01/27/21 [Rx] acetaZOLAMIDE [Diamox] 250 mg PO DAILY #7 tab 01/27/21 [Rx] carvediloL [Coreg] 6.25 mg PO BID-W/MEALS #60 tab 01/27/21 [Rx] Follow up Appointment(s)/Referral(s): Fco Hamilton MD [STAFF PHYSICIAN] - 1 Week Jabari Chow Jr, DO [Doctor of Osteopathic Medicine] - 1 Week Candelario Perkins MD [STAFF PHYSICIAN] - 1 Week (Abnormal sinus CT results) Flor Cleary [NON-STAFF] - (*Please contact Evin Ray once home to arrange delivery of oxygen concentrator. ) Simba Interiano MD [STAFF PHYSICIAN] - 1 Week Ambulatory/Diagnostic Orders: Basic Metabolic Panel [LAB.AMB] Time Frame: 1 Week, Location: None Selected Activity/Diet/Wound Care/Special Instructions: Activity: as tolerated Diet: heart healthy Special Instructions: Please follow up with Sleep Center and Sleep Study appointment on discharge: #[phone]. Discharge Disposition: HOME SELF-CARE
[2021-01-27 14:37] VITALS: BP 155/81; TEMP 98.7
[2021-01-27 16:17] VITALS: PULSE 85
== END 2021-01-27 17:18 | disposition home or self-care (01) | DRG 291 ==
LOC: EC 20:22 → 4SSUR 22:44
PROVIDERS: ADMIT Internal Medicine; ATTEND Internal Medicine
PROC: 5A0955A Assistance with Respiratory Ventilation, Greater than 96 Consecutive Hours, High Flow/Velocity Cannula (ICD-10-PCS; principal; 2021-01-20)
DX: I11.0 Hypertensive heart disease with heart failure (principal); J96.21 Acute and chronic respiratory failure with hypoxia; J96.22 Acute and chronic respiratory failure with hypercapnia; J44.1 Chronic obstructive pulmonary disease with (acute) exacerbation; E66.2 Morbid (severe) obesity with alveolar hypoventilation; Z68.41 Body mass index [BMI] 40.0-44.9, adult; N13.30 Unspecified hydronephrosis; E87.4 Mixed disorder of acid-base balance; I50.23 Acute on chronic systolic (congestive) heart failure; I42.9 Cardiomyopathy, unspecified; R73.9 Hyperglycemia, unspecified; N32.0 Bladder-neck obstruction; I25.10 Atherosclerotic heart disease of native coronary artery without angina pectoris; R73.03 Prediabetes; Z20.822 Contact with and (suspected) exposure to COVID-19; I27.21 Secondary pulmonary arterial hypertension; Z91.19 Patient's noncompliance with other medical treatment and regimen; J84.10 Pulmonary fibrosis, unspecified; I27.29 Other secondary pulmonary hypertension; D75.1 Secondary polycythemia; R33.9 Retention of urine, unspecified; J32.0 Chronic maxillary sinusitis; F17.200 Nicotine dependence, unspecified, uncomplicated; I71.4 Abdominal aortic aneurysm, without rupture; N40.0 Benign prostatic hyperplasia without lower urinary tract symptoms; T50.1X5A Adverse effect of loop [high-ceiling] diuretics, initial encounter
CPT/HCPCS: 36415; 36600; 70486; 71045; 71250; 71275; 76770; 80048; 80053; 80061; 82140; 82805; 83036; 83605; 83735; 83880; 84145; 84484; 85025; 85027; 85610; 85730; 87635; 93005; 93306; 94640; 94660; 94760; 99285

== ENCOUNTER 2021-03-12 08:36 | Day surgery (SDC) | payer MEDICARE, OTHER ==
[2021-03-11 09:29] VITALS: BMI 31.4
--- NOTE | 2021-03-12 06:20 | HP ---
HISTORY AND PHYSICAL CHIEF COMPLAINT: Left sinus mass. HISTORY OF PRESENT ILLNESS: This patient is a 66-year-old male who was referred to my office for evaluation of a possible left chronic sinusitis. At the time that he was seen in the office a CT scan that he brought to the office revealed that the maxillary sinus was involved with a mass which also involved the left nasal vault. There did not appear to be any bony destruction however. In addition to this, the patient had evidence of chronic pansinusitis. He stated that he has dealt with allergies for many years and has used nose sprays and some antihistamines. At the time that he was seen in the office, clinical examination including intranasal examination did not reveal any obvious intranasal mass. It was recommended that the patient undergo a left Mon- Selwyn with left intranasal antrostomy under general anesthesia. PAST MEDICAL HISTORY: Reveals patient has no known allergies to medications. MEDICATIONS: His current medications include losartan, Atorvastatin, Carvedilol, spironolactone, Lasix, Prilosec, one baby aspirin daily, and Flonase nasal spray. PREVIOUS SURGERIES: Include surgery on the patient's stomach but he does not know the nature of the surgery. REVIEW OF SYSTEMS: CARDIOVASCULAR: Positive for hypertension, ASHD, and congestive heart failure. RESPIRATORY: Positive for COPD/emphysema (the patient quit smoking 10 years ago). GASTROINTESTINAL: Positive for GERD (gastroesophageal reflux disorder). METABOLIC ENDOCRINE SYSTEM: Positive for hypercholesterolemia. The remainder of the review of systems is unremarkable. PHYSICAL EXAMINATION: Patient is a very pleasant 66-year-old male who was alert, cooperative and well- oriented to time and place. HEENT EXAMINATION: Patient is normocephalic. Tympanic membranes are normal. Middle ear spaces are free of any fluid or infection. Pupils equal, round, react to light and accommodation. Extraocular movements are within normal limits. Intranasal examination reveals moderate to severe septal deviation with compensatory hypertrophy of the inferior turbinates. There is no evidence of any nasal mass in either nasal chamber. Examination of oropharynx, cranial nerves 2-12 and remainder of the head and neck exam are within normal limits. CHEST CARDIOVASCULAR: Both lung vasques are clear to percussion and auscultation. The patient is in regular sinus rhythm. S1, S2 are present without evidence of any murmurs, S3s or S4s. Peripheral pulses are bilaterally symmetrical and within normal limits. ABDOMEN: There is no evidence any masses, megaly or tenderness. The abdomen is soft. Skin is unremarkable. MUSCULOSKELETAL AND NEUROLOGICAL: Within normal limits. RECTAL EXAM: The rectal exam is deferred at this time because the patient has this done on a regular basis at his family physician's office. The remainder of physical exam is unremarkable. IMPRESSION: Left maxillary sinus mass. PLAN: The patient is scheduled undergo a left Mon-Selwyn with left intranasal antrostomies under general anesthesia. Attention RNs in the pre-surgical area. I have ordered for this patient to receive 2 grams of Ancef IV prophylactic antibiotic to be given once an intravenous line has been established. If the pharmacy department sends a different pre-surgical prophylactic antibiotic to the pre-surgical area for this patient, please cancel that order and return the medication to the pharmacy department. Make sure that the patient's account is credited appropriately. Also, I have ordered for this patient to receive 1000 mg of Ofirmev IV, to be given once an intravenous line has been established. I have discussed the risks, benefits and alternative therapies for the above- mentioned procedure and for both sedation/analgesia as well as necessary blood product administration, if indicated, as they pertain to this patient. The patient has indicated his or her understanding and acceptance of the risks and procedures discussed. MMODL / IJN: [id number] / MTDD
[~2021-03-12 08:36] MED LIST: DEXAMETHASONE SOD PHOSPHATE 4 MG/ML 1 ML VIAL IV ONE; HYDROmorphone 0.5 MG/0.5 ML SYRINGE IVP PRN; LACTATED RINGERS 1,000 ML IV SCH; LIDOCAINE 1% (10MG/ML) FOR IV START INTRADERMA PRN; MIDAZOLAM 2 MG/2 ML VIAL IV PRN; ONDANSETRON 4 MG/2 ML VIAL IVP ONE; Pre Op ABX Message 1 EACH MISC MISCELLANE ONE
[2021-03-12 09:22] VITALS: BP 177/89; PULSE 81; RESP 20; TEMP 98.3
[2021-03-12] MEDS ORDERED: LACTATED RINGERS 1,000 ML IV ONE (09:32)
[2021-03-12] MEDS ORDERED: ACETAMINOPHEN IV (For NPO) 1,000 MG in EMPTY BAG 1 BAG IVPB ONE (09:45)
--- NOTE | 2021-03-12 20:02 | OP ---
OPERATIVE REPORT PREOPERATIVE DIAGNOSIS: Left maxillary sinus mass. POSTOPERATIVE DIAGNOSIS: Left maxillary sinus mass. ANESTHESIA: None. OPERATIVE PROCEDURE: None. OPERATING SURGEON: None. COMPLICATIONS: None. OPERATIVE PROCEDURE: The patient's surgery was canceled by the anesthesia department because of concerns over the patient's cardiac status with respect to congestive heart failure and significant heart disease. The patient has recently had a stress test but does not know the results. He has been advised by both me, Dr. Perkins, and the anesthesia department to schedule an appointment with his retail helper to be cleared for surgery as well as to review his stress test. Assuming his retail helper clears him, we will reschedule him in the future for this procedure, left Mon-Selwyn with left intranasal antrostomies and possible nasal polypectomy under general anesthesia. However, because of his cardiac status, it was felt to be too significant a risk to proceed with his surgery at this time in. MMILYA / IJN: [id number] /
== END 2021-03-12 10:14 | disposition home or self-care (01) ==
LOC: OR 08:36
PROVIDERS: ATTEND Otolaryngology
DX: J33.8 Other polyp of sinus (principal); I25.10 Atherosclerotic heart disease of native coronary artery without angina pectoris; I11.0 Hypertensive heart disease with heart failure; I50.9 Heart failure, unspecified; Z79.82 Long term (current) use of aspirin; Z79.899 Other long term (current) drug therapy; Z98.890 Other specified postprocedural states; J44.9 Chronic obstructive pulmonary disease, unspecified; Z87.891 Personal history of nicotine dependence
CPT/HCPCS: 31032; J1100; J2405; J0131

== ENCOUNTER → 2021-03-30 | Outpatient (CLI) | payer MEDICARE, OTHER ==
[2021-03-30 16:20] LABS: Anisocytosis Slight; HCT 54.5 % (39.0-53.0); HGB 17.6 gm/dL (13.0-17.5); MCH 29.8 pg (25.0-35.0); MCHC 32.4 g/dL (31.0-37.0); MCV 91.9 fL (80.0-100.0); Mean Platelet Volume 9.4; Platelet Count 160 k/uL (150-450); RBC 5.93 m/uL (4.30-5.90)
[2021-03-30 16:28] LABS: African American GFR (CKD) >90 (>60 ml/min/1.73 sqM); Anion Gap 7 mmol/L; Blood Urea Nitrogen 25 mg/dL (9-20); Carbon Dioxide 35 mmol/L (22-30); Chloride 94 mmol/L (98-107); Non-African American GFR(CKD) 89 (>60 ml/min/1.73 sqM); Potassium 4.4 mmol/L (3.5-5.1); Sodium 136 mmol/L (137-145)
== END | disposition home or self-care (01) ==
LOC: LABPAT 15:31
PROVIDERS: ATTEND Internal Medicine Interventional Cardiology
DX: Z01.812 Encounter for preprocedural laboratory examination (principal); I50.22 Chronic systolic (congestive) heart failure
CPT/HCPCS: 80051; 82565; 84520; 85027

== ENCOUNTER 2021-04-05 06:31 | Day surgery (SDC) | payer MEDICARE, OTHER ==
[2021-03-31 10:18] VITALS: BMI 32.8
[~2021-04-05 06:31] MED LIST changes: +ALPRAZolam 0.25 MG TAB PO PRN; +ALPRAZolam 0.5 MG TAB PO PRN; -DEXAMETHASONE SOD PHOSPHATE 4 MG/ML 1 ML VIAL IV ONE; -HYDROmorphone 0.5 MG/0.5 ML SYRINGE IVP PRN; -LACTATED RINGERS 1,000 ML IV SCH; -LIDOCAINE 1% (10MG/ML) FOR IV START INTRADERMA PRN; -MIDAZOLAM 2 MG/2 ML VIAL IV PRN; +NITROGLYCERIN SL TABS 0.4 MG TAB SUBLINGUAL PRN; -ONDANSETRON 4 MG/2 ML VIAL IVP ONE; -Pre Op ABX Message 1 EACH MISC MISCELLANE ONE; +SODIUM CHLORIDE 0.9% 1,000 ML in EMPTY BAG 1 BAG IV ONE
[2021-04-05 06:59] VITALS: TEMP 98
[2021-04-05] MEDS ORDERED: HEPARIN SODIUM,PORCINE 10,000 UNIT in SODIUM CHLORIDE 0.9% 1,000 ML IRRIGATION PRN (07:00)
[2021-04-05] MEDS ORDERED: HEPARIN SODIUM,PORCINE 2,500 UNIT in SODIUM CHLORIDE 0.9% 250 ML IRRIGATION PRN (07:00)
[2021-04-05] MEDS ORDERED: ASPIRIN 325 MG TAB PO ONE (07:00)
[2021-04-05] MEDS ORDERED: LIDOCAINE 1% INJ 10MG/ML (20 ML MDV) SQ ONE (08:00)
[2021-04-05] MEDS: VERAPAMIL SYRINGE (5 MG/10 ML) INTRAARTER ONE ×2 (08:00→08:10)
[2021-04-05] MEDS ORDERED: HEPARIN SODIUM 1,000 UN/ML (10ML VL) IV ONE (08:04)
[2021-04-05] MEDS ORDERED: IOPAMIDOL-370 125ML BTL INJ ONE (08:09)
[2021-04-05] MEDS ORDERED: RX INFO: IV CONTRAST WAS GIVEN 1 EACH MISC MISCELLANE PRN (08:19)
[2021-04-05] MEDS ORDERED: SODIUM CHLORIDE 0.9% 1,000 ML IV SCH (08:30)
--- NOTE | 2021-04-05 10:05 | CC ---
CARDIAC CATHETERIZATION REPORT DATE OF SERVICE: 04/05/2021 PERFORMING PHYSICIAN: Fco Hamilton M.D. PROCEDURE PERFORMED: 1. Selective right and left coronary angiogram. 2. Left heart catheterization. INDICATION: Chest discomfort and abnormal myocardial perfusion imaging, stress test in this 66-year- old gentleman with history of chronic hypoxic respiratory failure and also history of hypertension and dyslipidemia. APPROACH: Right radial artery. COMPLICATIONS: None. LEVEL OF SEDATION: Moderate, with sedation length of 14 minutes. PROCEDURE DESCRIPTION: After obtaining informed consent, the patient was brought to the cardiac cath lab technologist. The right radial artery was cannulated using micropuncture technique. The micropuncture wire passed easily. Then I placed a 6-Kinyarwanda sheath in the right radial artery. I gave the patient 2 mg of verapamil IA and 6000 units of heparin IV. Selective right and left coronary angiogram was performed with JR4 and JL3.5 catheters. Left heart catheterization was performed using a 5-Kinyarwanda pigtail catheter. The procedure was completed without any complication. SELECTIVE CORONARY ANGIOGRAM: 1. The right coronary artery is a large-caliber vessel. It is a dominant vessel. The RCA has mild disease in the mid portion with an excellent plaque. It distally bifurcates into PDA and PLV branches. Both appeared to be angiographically normal. 2. The left main is angiographically normal. It bifurcates into LCX and LAD. 3. The LCX is a large-caliber vessel. It is a nondominant vessel. The LCX appeared to be angiographically normal. It gives rise to multiple obtuse marginal branches; all appeared to be angiographically normal. 4. The LAD is a large-caliber vessel. The LAD is angiographically normal. It gives rise to a large first and second diagonal branches. Both appeared to be angiographically normal. 5. HEMODYNAMICS: The LVEDP was about 10 to 12 mmHg without significant gradient across the aortic valve. CONCLUSION: 1. Mild nonobstructive coronary artery disease. 2. Normal LVEDP. POSTPROCEDURE MANAGEMENT: 1. medical treatment. 2. Follow up with the patient. Contact number for Papa Stroud is . MMODL / IJN: [id number] /
[2021-04-05 12:37] VITALS: BP 156/90; PULSE 78; RESP 18
== END 2021-04-05 12:50 | disposition home or self-care (01) ==
LOC: CATHCVL 06:31
PROVIDERS: ATTEND Internal Medicine Interventional Cardiology
DX: I25.10 Atherosclerotic heart disease of native coronary artery without angina pectoris (principal); J96.11 Chronic respiratory failure with hypoxia; I10 Essential (primary) hypertension; E78.5 Hyperlipidemia, unspecified; I42.9 Cardiomyopathy, unspecified; Z82.49 Family history of ischemic heart disease and other diseases of the circulatory system; Z87.891 Personal history of nicotine dependence; I27.20 Pulmonary hypertension, unspecified; I08.0 Rheumatic disorders of both mitral and aortic valves; Z79.82 Long term (current) use of aspirin; Z79.899 Other long term (current) drug therapy
CPT/HCPCS: 93458; C1894; C1769; J2001; J1644; Q9967

== ENCOUNTER 2024-11-06 05:54 | Day surgery (SDC) | payer MEDICARE, OTHER ==
[2024-11-06] MEDS ORDERED: ALPRAZolam 0.5 MG TAB PO PRN (05:58)
[2024-11-06] MEDS ORDERED: ALPRAZolam 0.25 MG TAB PO PRN (05:58)
[2024-11-06] MEDS ORDERED: NITROGLYCERIN SL TABS 0.4 MG TAB SUBLINGUAL PRN (05:58)
[2024-11-06] MEDS: IV FLUID CONTINUATION 1,000 ML IV ONE ×2 (06:15→09:10)
[2024-11-06 06:42] LABS: Basophils # (A) 0.1 k/uL (0-0.2); Basophils % (A) 1 %; Eosinophils # (A) 0.4 k/uL (0-0.7); Eosinophils % (A) 5 %; HGB 17.4 gm/dL (13.0-17.5); Lymphocytes # (A) 1.7 k/uL (1.0-4.8); Lymphocytes % (A) 24 %; MCH 31.2 pg (25.0-35.0); MCHC 32.8 g/dL (31.0-37.0); MCV 95.1 fL (80.0-100.0); Mean Platelet Volume 9.1; Monocytes # (A) 0.5 k/uL (0-1.0); Monocytes % (A) 7 %; Neutrophils # (A) 4.5 k/uL (1.3-7.7); Neutrophils % (A) 62 %; Platelet Count 160 k/uL (150-450); RBC 5.58 m/uL (4.30-5.90); WBC 7.3 k/uL (3.8-10.6)
[2024-11-06] MEDS: SODIUM CHLORIDE 0.9% 1,000 ML IV SCH ×2 (07:01→09:32)
[2024-11-06] MEDS: ASPIRIN 325 MG TAB PO ONE (07:01)
[2024-11-06 07:02] LABS: African American GFR (CKD) >90 (>60 ml/min/1.73 sqM); Anion Gap 7 mmol/L; Blood Urea Nitrogen 28 mg/dL (9-20); Calcium 9.6 mg/dL (8.4-10.2); Carbon Dioxide 32 mmol/L (22-30); Chloride 97 mmol/L (98-107); Glucose 120 mg/dL (74-99); Non-African American GFR(CKD) 87 (>60 ml/min/1.73 sqM); Potassium 3.9 mmol/L (3.5-5.1); Sodium 136 mmol/L (137-145)
[2024-11-06 07:05] VITALS: TEMP 98.1
[2024-11-06] MEDS: ATORVASTATIN 80 MG TAB PO ONE (07:31)
[2024-11-06] MEDS: HEPARIN SODIUM,PORCINE (1 ML) 2,500 UNIT in SODIUM CHLORIDE 0.9% 250 ML IRRIGATION ONE (08:07)
[2024-11-06] MEDS: HEPARIN SODIUM (1,000 UNIT/ML) 1,000 UNIT in SODIUM CHLORIDE 0.9% 1,000 ML IRRIGATION ONE (08:07)
[2024-11-06] MEDS: MIDAZOLAM 2 MG/2 ML VIAL IVP ONE (08:10)
[2024-11-06] MEDS: LIDOCAINE 1% INJ 10MG/ML (20 ML MDV) SQ ONE (09:09)
[2024-11-06] MEDS: VERAPAMIL SYRINGE (5 MG/10 ML) INTRAARTER ONE (09:10)
[2024-11-06] MEDS: HEPARIN SODIUM 1,000 UN/ML (10ML VL) IV ONE (09:13)
[2024-11-06] MEDS: IOPAMIDOL-370 100ML BTL INJ ONE (09:19)
[2024-11-06] MEDS: HEPARIN SODIUM,PORCINE (1 ML) 2,500 UNIT in SODIUM CHLORIDE 0.9% 250 ML IRRIGATION PRN (09:20)
[2024-11-06] MEDS: HEPARIN SODIUM,PORCINE 10,000 UNIT in SODIUM CHLORIDE 0.9% 1,000 ML IRRIGATION PRN (09:20)
[2024-11-06] MEDS ORDERED: RX INFO: IV CONTRAST WAS GIVEN 1 EACH MISC MISCELLANE PRN (09:23)
--- NOTE | 2024-11-06 09:24 | P.PCN ---
Date of Procedure: 11/06/24 Operative Findings: CARDIAC CATHETERIZATION PERFORMING PHYSICIAN: Fco Hamilton MD, RPVI PROCEDURE PERFORMED: 1. Selective right and left coronary angiogram 2. Left heart catheterization 3. Ultrasound-guided access of the right radial artery INDICATION: Symptomatic 69-year-old gentleman with abnormal myocardial perfusion imaging stress test COMPLICATION: None APPROACH: Right radial artery LEVEL OF SEDATION: Moderate with a sedation length of 11 minutes PROCEDURE DESCRIPTION: After obtaining an informed consent, the patient was brought to cardiac track repair laborer. Local anesthesia was performed using lidocaine subcutaneously. The right radial artery was cannulated using Seldinger technique, under ultrasound guidance, the guidewire passed easily, following that we advanced a 5-Maltese sheath dilator assembly, the wire and dilator were removed and sheath was flushed. Following that, 2 mg of verapamil along with 5000 unit heparin were given. Selective right and left coronary angiogram using a 5-Maltese JR4 and JL 4 catheters. Following that we did left heart catheterization using 5-Maltese pigtail catheter. The procedure was completed there was no complication. SELECTIVE CORONARY ANGIOGRAM: The right coronary artery: Large caliber vessel and a dominant vessel with mild to moderate disease involving the PDA branch Left main: Is angiographically normal The left circumflex: Large caliber vessel nondominant vessel with no evidence of high-grade stenosis The left anterior descending artery: Large caliber vessel appears to be angiographically normal HEMODYNAMICS: The LVEDP was 2 mmHg with no gradient was identified across aortic valve CONCLUSION: 1. Mild to moderate CAD 2. Low left-sided filling pressure POSTPROCEDURE MANAGEMENT: Medical treatment
[2024-11-06 11:08] VITALS: RESP 16
[2024-11-06 12:34] VITALS: BP 124/85; PULSE 76
== END 2024-11-06 13:07 | disposition home or self-care (01) ==
LOC: CATHCVL 05:54
PROVIDERS: ATTEND Internal Medicine Interventional Cardiology
DX: I25.10 Atherosclerotic heart disease of native coronary artery without angina pectoris (principal); I42.8 Other cardiomyopathies; I38 Endocarditis, valve unspecified; I77.819 Aortic ectasia, unspecified site; J96.11 Chronic respiratory failure with hypoxia; I10 Essential (primary) hypertension; E78.5 Hyperlipidemia, unspecified; E66.3 Overweight; F17.210 Nicotine dependence, cigarettes, uncomplicated; Z68.35 Body mass index [BMI] 35.0-35.9, adult; Z79.02 Long term (current) use of antithrombotics/antiplatelets; Z79.899 Other long term (current) drug therapy
CPT/HCPCS: 93458; 80048; 85025; 99152; J2250; J1644 ×3; J2003; Q9967